=== PATIENT | male | born 1930 | race Caucasian/White ===

== ENCOUNTER 2018-01-17 17:10 | Emergency (ER) | payer MEDICARE ==
[~2018-01-17] VITALS: Ht 165.1 cm; Wt 78.0 kg
[~2018-01-17 17:10] MED LIST: ALBU90OI; ALBU90OI INH; ALBU90OI6 INH; AMLO10 PO; ASPI81CH; AZIT250 PO; Amlodipine-Ben1 EACH PO; BENAML20/5; BUDE6HFA INH; CEFP200 PO; CHLO25B; DOXA4; FLUSAL1005; FLUVIRIN IM; INDERAL XL80 MG PO; INNOPRAN; LEVFLO500 PO; META800; Omeprazole20 M1 PO; PRED10 PO; PRED5; PROC5 PO; PROPRANOLOL 80 MG; Propranolol HCl80 MG PO; Simvastatin10 MG PO; TAMS.4ER PO; THEO300ERB; TRAM50
== END 2018-01-17 19:15 | disposition home or self-care (01) ==
LOC: ER 17:10
DX: S80.11XA Contusion of right lower leg, initial encounter (principal); J44.9 Chronic obstructive pulmonary disease, unspecified; I10 Essential (primary) hypertension; E78.5 Hyperlipidemia, unspecified; Z86.73 Personal history of transient ischemic attack (TIA), and cerebral infarction without residual deficits; W18.30XA Fall on same level, unspecified, initial encounter
CPT/HCPCS: 73552; 99283

== ENCOUNTER 2018-09-03 19:27 | Inpatient (IN) | payer MEDICARE ==
[~2018-09-03] VITALS: Ht 167.6 cm; Wt 66.5 kg
[2018-09-03] MEDS ORDERED: Omeprazole20 M1 (19:59)
[2018-09-03 21:57] LABS: BASOPHILS ABSOLUTE AUTO 0.03 K/mm3 (0.00-0.23); BASOPHILS PERCENT AUTO 0 % (0-2); EOSINOPHILS ABSOLUTE AUTO 0.06 K/mm3 (0.00-0.68); EOSINOPHILS PERCENT AUTO 1 % (0-6); Hematocrit 35.1 % (37.0-53.0); Hemoglobin 10.5 g/dL (13.5-17.5); IMMATURE GRAN ABSOLUTE AUTO 0.04 K/mm3 (0.00-0.10); IMMATURE GRAN PERCENT AUTO 0 % (0-1); LYMPHOCYTES ABSOLUTE AUTO 1.41 K/mm3 (0.84-5.20); LYMPHOCYTES PERCENT AUTO 12 % (21-46); MONOCYTES ABSOLUTE AUTO 0.57 K/mm3 (0.16-1.47); MONOCYTES PERCENT AUTO 5 % (4-13); Mean Corpuscular HGB 26.9 pg (26.0-34.0); Mean Corpuscular HGB Conc 29.9 g/dL (31.5-36.5); Mean Corpuscular Volume 90 fL (80-100); Mean Platelet Volume 9.2 fL (9.1-12.4); NEUTROPHILS ABSOLUTE AUTO 9.52 K/mm3 (1.96-9.15); NEUTROPHILS PERCENT AUTO 82 % (41-73); Platelet Count 249 K/mm3 (150-400); RDW Standard Deviation 49.8 fL (35.1-46.3); White Blood Cell Count 11.63 K/mm3 (4.00-11.30)
[2018-09-03 22:12] LABS: Anion Gap 5 mmol/L (6-16); Blood Urea Nitrogen 23 mg/dL (8-24); Bun/Creatinine Ratio 21.3 (12.0-20.0); CO2, Blood 30 mmol/L (21-32); Calcium, Blood 8.4 mg/dL (8.5-10.1); Chloride, Blood 107 mmol/L (98-108); Creatinine, Blood 1.08 mg/dL (0.60-1.20); Glomerular Filtration Rate >60 (60-); Glucose, Blood 163 mg/dL (70-99); Potassium, Blood 4.6 mmol/L (3.5-5.5); Sodium, Blood 142 mmol/L (136-145)
--- NOTE | 2018-09-04 06:47 | NUR ---
SHIFT SUMMARY PT ADMITTED LAST NIGHT AFTER GLF. DR. LAFLEUR SAW HIM THIS MORNING AND DOC HAS NO CONCERNS ABOUT THE PT GOING TO SURGERY TODAY. ORTHO TO SEE HIM THIS MORNING. 2L VIA NC AT HS, PT DENIES SOB. RIGHT LEG IS EXTERNALLY ROTATED. PT USES A FWW AT BASELINE. HE IS A&O. PT'S DAUGHTER STAYED THE NIGHT WITH HIM. PT IS INCONTINENT OF B&B THOUGH WILL CALL FOR THE URINAL. HE HAS URGENCY AND FREQUENCY AT BASELINE. EKG DONE THIS MORNING. WILL CTM UNTIL PASS TO NEXT SHIFT.
--- NOTE | 2018-09-04 08:00 | NUR ---
THIS RN GAVE REPORT TO OTHER RN ASSUMING CARE AT THIS TIME.
--- NOTE | 2018-09-04 08:20 | NUR ---
ANGEL MORRIS TO ROOM DISCUSSING OR PLAN. AWAITING MEDS FROM PHARMACY.
--- NOTE | 2018-09-04 08:44 | NUR ---
pt medicated with amlodopine and propanlol per orders. other meds held.
--- NOTE | 2018-09-04 09:50 | NUR ---
THIS RN RECIEVED UPDATE ON PT AND IS ASSUMING CARE AT THIS TIME.
--- NOTE | 2018-09-04 12:46 | NUR ---
PT TO HAVE PROCEDURE WITH DAYSURGERY STAFF IN OWN BED. FAMILY PRESENT. INFORMED DAYSHIFT OF STARTING IV, THEY REPORT WILL START BACK IN DAYSURGERY. PT ATTENDS CHANGED HE MISSED URINAL. FAMILY PRESENT.
--- NOTE | 2018-09-04 14:42 | NUR ---
OTHER MAHENDRA Schmid GIVEN REPORT AND IS ASSUMING CARE OF PT AT THIS TIME.
--- NOTE | 2018-09-04 16:49 | NUR ---
Provided supportive visit to Mr. Martinez. He was welcoming of companionship and encouragement. Family is very supportive. No needs presented. I will remain available.
[2018-09-05 05:44] LABS: BASOPHILS ABSOLUTE AUTO 0.02 K/mm3 (0.00-0.23); BASOPHILS PERCENT AUTO 0 % (0-2); EOSINOPHILS ABSOLUTE AUTO 0.02 K/mm3 (0.00-0.68); EOSINOPHILS PERCENT AUTO 0 % (0-6); Hematocrit 27.3 % (37.0-53.0); Hemoglobin 8.2 g/dL (13.5-17.5); IMMATURE GRAN ABSOLUTE AUTO 0.06 K/mm3 (0.00-0.10); IMMATURE GRAN PERCENT AUTO 1 % (0-1); LYMPHOCYTES ABSOLUTE AUTO 1.14 K/mm3 (0.84-5.20); LYMPHOCYTES PERCENT AUTO 10 % (21-46); MONOCYTES ABSOLUTE AUTO 0.88 K/mm3 (0.16-1.47); MONOCYTES PERCENT AUTO 8 % (4-13); Mean Corpuscular HGB 26.5 pg (26.0-34.0); Mean Corpuscular Volume 88 fL (80-100); Mean Platelet Volume 9.5 fL (9.1-12.4); NEUTROPHILS ABSOLUTE AUTO 9.17 K/mm3 (1.96-9.15); NEUTROPHILS PERCENT AUTO 81 % (41-73); Platelet Count 199 K/mm3 (150-400); RDW Coefficient Variation 15.1 % (11.7-14.2); RDW Standard Deviation 48.8 fL (35.1-46.3); Red Blood Cell Count 3.09 M/mm3 (4.30-5.90); White Blood Cell Count 11.29 K/mm3 (4.00-11.30)
[2018-09-05 06:07] LABS: Anion Gap 6 mmol/L (6-16); Blood Urea Nitrogen 29 mg/dL (8-24); Bun/Creatinine Ratio 26.9 (12.0-20.0); CO2, Blood 29 mmol/L (21-32); Chloride, Blood 104 mmol/L (98-108); Creatinine, Blood 1.08 mg/dL (0.60-1.20); Glomerular Filtration Rate >60 (60-); Glucose, Blood 162 mg/dL (70-99); Potassium, Blood 4.4 mmol/L (3.5-5.5); Sodium, Blood 139 mmol/L (136-145)
--- NOTE | 2018-09-05 06:25 | NUR ---
O2 SATS RANGING FROM 83-87 ON 3.5 L NC. RT NOTIFIED FOR NEW ORDER OF ALBUTEROL TX. PT'S O2 RATE INCREASED TO 5 L PER NC. PT DENIES CHEST PAIN AND SOB.
--- NOTE | 2018-09-05 06:45 | NUR ---
HR DROPPING TO 50'S AND RISING BACK UP TO 90'S QUICKLY. 02 AT 83% ON [address] LAFLEUR NOTIFIED OF RECENT CHANGES. EKG AND CHEST XRAY ORDERED. WILL FAX EKG RESULTS TO DR LAFLEUR.
--- NOTE | 2018-09-05 06:45 | NUR ---
RT AT BEDSIDE. PT PUT ON NON-REBREATHER MASK.
--- NOTE | 2018-09-05 07:21 | NUR ---
09/05/18 0721 Barbara De Leon VERIFICATIONS: EDIT CHART.
--- NOTE | 2018-09-05 07:40 | NUR ---
BREATHING AND O2 SATS IMPROVED AFTER RESPIRATORY THERAPY. 02 SATS STABLE ABOVE 90. PT'S HOB IS ELEVATED. DENIES SOB AND CHEST PAIN. DENIES N/V AFTER RECENT DOSE OF ZOFRAN GIVEN. RATING PAIN 3/10 ON PAIN SCALE. BLOOD PRESSURE WNL.
--- NOTE | 2018-09-05 08:04 | NUR ---
SHIFT SUMMARY: PT C/O NAUSEA AROUND 2230 LAST NIGHT. GIVEN ZOFRAN PRN PER EMAR. MILD IMPROVEMENT. C/O SOME PAIN IN RIGHT HIP. RATING 3/10. GIVEN IV PAIN MEDS INSTEAD OF ORAL MEDS DUE TO N/V. PT THEN COMPLAINS OF MORE N/V. ZOFRAN GIVEN A TOTAL OF 3 TIMES. TOTAL EMESIS OUTPUT OF 900 ML. IV FLUIDS INFUSING AT 80/HR. PT HAVING DIFFICULT TIME VOIDING. BLADDER SCANNED AT APPROX 2250 WITH A URINE AMT OF 297. STRAIGHT CATHED AT APPROX 2315 WITH 300 ML OUTPUT. BLADDER SCAN THIS MORNING AT APPROX 0715 SHOWED 104 ML IN BLADDER. WILL CON TO MONITOR. PT'S O2 BEGINNING TO DROP INTO 80'S AROUND 0530 THIS AM. NEW FINGER PROBE ATTATCHED, NEW NC TUBING PLACED. PULSE OX FROM MONITOR PLACED ON OPPOSITE FINGER. NO CHANGE OR IMPROVEMENT. RESPIRATORY THERAPY NOTIFIED. HR RANGING FROM 50'S-90'S. DR LAFLEUR NOTIFIED. CHEST XRAY AND EKG ORDERED.
--- NOTE | 2018-09-05 08:26 | NUR ---
RT HERE, REPORTS 02 DOWN TO 3L02NC @94%. PT HAVING NAUSEA OFF AND ON.
--- NOTE | 2018-09-05 09:01 | NUR ---
PT HAVING NAUSEA THAT COMES AND GOES. PT 02 LEVEL REQUIRING 5L02NC IT WAS EARLIER THIS AM. DISCUSSED WITH CLINICAL COORDINATOR.
--- NOTE | 2018-09-05 09:25 | NUR ---
PT RESTING QUIETLY AT THIS TIME. PT ON 5LO2NC @97%. O2 TURNED DOWN TO 4L02NC @95% FAMILY PRESENT.
--- NOTE | 2018-09-05 10:13 | NUR ---
PT MED FOR NAUSEA. APPEARS WHEN PT HAVING NAUSEA THAT HE REQUIRES TO HAVE INCREASED O2. PT SPITTING UP DARK BROWN LIQUID.
--- NOTE | 2018-09-05 11:04 | NUR ---
DR LAFLEUR CALLED FOR UPDATE. GIVEN. FAMILY IN ROOM. BLADDER SCAN COMPLETED. DR AWARE OF BLADDER SCAN. DR REPORTS TO GIVE IV PROTONIX NOW. PT WAS REPORTING HEARTBURN EARLIER THAT WENT AWAY.
[2018-09-05 15:07] LABS: PCO2 Arterial 45.8 mmHg (35-45); PO2 Arterial 52.7 mmHg (80-100); pH Blood Arterial 7.41 (7.35-7.45)
--- NOTE | 2018-09-05 17:53 | NUR ---
DR LAFLEUR HERE RECENTLY. DISCUSSED PT'S STATUS. PT HAVING SMALL AMTS OF SIPS WITH HOB ELEVATED WITH NO NAUSEA SO FAR.
--- NOTE | 2018-09-05 18:18 | NUR ---
SHIFT SUMMARY PT NOW TOLERATING SMALL AMT'S OF SIPS OF C.L. WITH NO NAUSEA. PT REPORTS PASSING SMALL AMTS OF GAS. PT VOIDING BETTER THIS AFTERNOON. PT OXYGEN DOWN TO 3.5LNC AND DOES NOT APPEAR SOB. PT WORKED WITH THERAPY EARLIER TODAY. PT WAS DISORIENTED EARLIER BUT HAS CLEARED UP SINCE THEN, ABG WAS COMPLETED BY RT. PT BEEN CLEANED UP AND HAS ATTENDS IN PLACE. PT ENC TO USE I/S. FAMILY IN ROOM T/O DAY. DR LAFLEUR CALLED FOR MULT UPDATES AND CAME IN TO SEE PT THIS EVENING. ALARM IN PLACE. HOB ELEVATED WHEN PT TAKING DRINKS OR HAVING ICE CHIPS. CONT BIOX IN ROOM.
--- NOTE | 2018-09-06 04:17 | NUR ---
SUMMARY: PT IS POD2 R FEMUR REPAIR. NO PIANO MAKER NIGHT. VSS, PT DID HAVE HARD TIME SLEEPING, ABLE TO SLEEP AROUND 0300. SURGICAL SITE WNL. PT VOIDING SMALL AMOUNTS IN URINAL. GIVEN TYLENOL X1. ABLE TO TOLERATE SIPS OF WATER. A/O, VSS. PT DAUGHTER AT BEDSIDE. WILL CTM AND REPORT TO DAY RN
[2018-09-06 04:56] LABS: BASOPHILS ABSOLUTE AUTO 0.03 K/mm3 (0.00-0.23); BASOPHILS PERCENT AUTO 0 % (0-2); EOSINOPHILS ABSOLUTE AUTO 0.06 K/mm3 (0.00-0.68); EOSINOPHILS PERCENT AUTO 1 % (0-6); Hemoglobin 7.3 g/dL (13.5-17.5); IMMATURE GRAN ABSOLUTE AUTO 0.06 K/mm3 (0.00-0.10); IMMATURE GRAN PERCENT AUTO 1 % (0-1); LYMPHOCYTES ABSOLUTE AUTO 1.37 K/mm3 (0.84-5.20); LYMPHOCYTES PERCENT AUTO 12 % (21-46); MONOCYTES ABSOLUTE AUTO 0.86 K/mm3 (0.16-1.47); MONOCYTES PERCENT AUTO 8 % (4-13); Mean Corpuscular HGB 26.8 pg (26.0-34.0); Mean Corpuscular HGB Conc 30.4 g/dL (31.5-36.5); Mean Corpuscular Volume 88 fL (80-100); Mean Platelet Volume 9.9 fL (9.1-12.4); NEUTROPHILS PERCENT AUTO 79 % (41-73); Platelet Count 172 K/mm3 (150-400); RDW Coefficient Variation 15.3 % (11.7-14.2); RDW Standard Deviation 49.1 fL (35.1-46.3); Red Blood Cell Count 2.72 M/mm3 (4.30-5.90); White Blood Cell Count 11.18 K/mm3 (4.00-11.30)
[2018-09-06 05:21] LABS: Alanine Aminotransfer (ALT/SGP 17 U/L (12-78); Albumin, Blood 2.3 g/dL (3.4-5.0); Albumin/Globulin Ratio 0.6 (0.8-1.8); Alk Phos 94 U/L (50-136); Anion Gap 6 mmol/L (6-16); Aspartate Aminotrans (AST/SGOT 16 U/L (12-37); Bilirubin, Total 0.4 mg/dL (0.1-1.0); Blood Urea Nitrogen 29 mg/dL (8-24); Bun/Creatinine Ratio 26.6 (12.0-20.0); CO2, Blood 29 mmol/L (21-32); Chloride, Blood 104 mmol/L (98-108); Creatinine, Blood 1.09 mg/dL (0.60-1.20); Globulin, Blood 3.9 g/dL (2.2-4.0); Glomerular Filtration Rate >60 (60-); Glucose, Blood 129 mg/dL (70-99); Sodium, Blood 139 mmol/L (136-145); Total Protein, Blood 6.2 g/dL (6.4-8.2)
--- NOTE | 2018-09-06 05:32 | NUR ---
PT HGB 7.[address] VOGEL NOTIFIED. SEE NEW ORDERS.
[2018-09-06 17:37] LABS: Hematocrit 29.2 % (37.0-53.0); Hemoglobin 9.3 g/dL (13.5-17.5)
--- NOTE | 2018-09-06 18:04 | NUR ---
SUMMARY PATIENT RECEIVED 2 UNITS OF PRBC'S. FAMILY ATTENTIVE AT BEDSIDE THROUGHOUT SHIFT. PATIENTS RIGHT HIP DRESSING DRY AND INTACT. PAIN CONTROLLED WITH TYLENOL
--- NOTE | 2018-09-07 18:14 | NUR ---
SUMMARY PATIENT DENIES NAUSEA THROUGHOUT SHIFT, LIQUID BROWN BM'S WITH SOME FORMED STOOL MIXED IN LIQUID. PATIENT WITH VERY POOR PO INTAKE. FAMILY AND NURSING STAFF ENCOURAGING INCREASED INTAKE. PATIENTS PAIN WELL CONTROLLED WITH TYLENOL. PATIENT WITH NO REDNESS OR SKIN IRRITATION NOTED. RIGHT HIP DRESSING INTACT X2,FAMILY PRESENT AT BEDSIDE THROUGHOUT SHIFT TABATHA BEAL RN
--- NOTE | 2018-09-08 18:20 | NUR ---
SUMMARY NO ACUTE CHANGES NOTED THROUGH THE DAY. PT WORKED WITH THERAPY X1, SAT IN THE CHAIR FOR A FEW HRS, TOLERATED IT WELL. PAIN MANAGED WITH TYLENOL. THROAT LOZENGES GIVEN FOR SORE THROAT. PT C/O OF PROBLEMS SWALLOWING. IS AWARE. SWALLOW STUDY ORDERED IN THE AM. PO FLUIDS ENCOURAGED, PT IS NOT VERY RECEPTIVE, FREQUENT EDUCATION PROVIDED. PT IS A 2 PERSON LIFT TRANSFER BACK TO BED. CALL LIGHT IN REACH, FAMILY AT THE BEDSIDE ASSISTING WITH CARE. [place]
--- NOTE | 2018-09-09 04:34 | NUR ---
SHIFT SUMMARY: POD #5 FOR R HIP HIP REPAIR. PAIN MANAGED WITH TYLENOL PER EMAR. ATTEMPTED TO DECREASE O2 FROM 3L TO 2.5L, PT SITTING AT 90-92%. PT INCREASED BACK UP TO 3 L PER NC. USING URINAL WITH ATTENDS IN PLACE FOR COMFORT. POOR PO INTAKE. ENCOURAGED TO INCREASE WATER INTAKE. DENIES N/V. FLUIDS INFUSING PER EMAR. VOIDING DARK YELLOW URINE. PT RESTING MOST OF SHIFT. FAMILY AT BEDSIDE.
[2018-09-09 05:23] LABS: BASOPHILS ABSOLUTE AUTO 0.03 K/mm3 (0.00-0.23); BASOPHILS PERCENT AUTO 0 % (0-2); EOSINOPHILS ABSOLUTE AUTO 0.15 K/mm3 (0.00-0.68); EOSINOPHILS PERCENT AUTO 2 % (0-6); Hematocrit 28.8 % (37.0-53.0); Hemoglobin 8.9 g/dL (13.5-17.5); IMMATURE GRAN ABSOLUTE AUTO 0.08 K/mm3 (0.00-0.10); IMMATURE GRAN PERCENT AUTO 1 % (0-1); LYMPHOCYTES ABSOLUTE AUTO 1.07 K/mm3 (0.84-5.20); LYMPHOCYTES PERCENT AUTO 16 % (21-46); MONOCYTES ABSOLUTE AUTO 0.78 K/mm3 (0.16-1.47); MONOCYTES PERCENT AUTO 12 % (4-13); Mean Corpuscular HGB Conc 30.9 g/dL (31.5-36.5); Mean Corpuscular Volume 87 fL (80-100); NEUTROPHILS ABSOLUTE AUTO 4.62 K/mm3 (1.96-9.15); NEUTROPHILS PERCENT AUTO 69 % (41-73); NRBC ABSOLUTE 0.03 K/mm3 (0.00-0.02); NRBC Auto 0.4 /100 WBC (0.0-0.2); Platelet Count 187 K/mm3 (150-400); RDW Coefficient Variation 15.9 % (11.7-14.2); RDW Standard Deviation 50.6 fL (35.1-46.3); White Blood Cell Count 6.73 K/mm3 (4.00-11.30)
[2018-09-09 05:56] LABS: Anion Gap 6 mmol/L (6-16); Blood Urea Nitrogen 15 mg/dL (8-24); Bun/Creatinine Ratio 16.9 (12.0-20.0); CO2, Blood 30 mmol/L (21-32); Calcium, Blood 8.1 mg/dL (8.5-10.1); Chloride, Blood 103 mmol/L (98-108); Creatinine, Blood 0.89 mg/dL (0.60-1.20); Glomerular Filtration Rate >60 (60-); Glucose, Blood 127 mg/dL (70-99); Potassium, Blood 3.5 mmol/L (3.5-5.5); Sodium, Blood 139 mmol/L (136-145)
--- NOTE | 2018-09-09 09:06 | NUR ---
EARLIER TODAY DISCUSSED WITH IMAGING STUDY THIS AM WHO REPORTED UNABLE TO COMPLETE D/T SPEECH BEING UNAVAIL, DR NOTIFIED WHO REPORTED TO COMPLETE TODAY WITHOUT SPEECH. IMAGING NOTIFIED WHO REPORTED THAT THEY WILL NOT BE ABLE TO COMPLETE WITHOUT SPEECH AND THAT THEY WOULD NOTIFY DR LAFLEUR TO INFORM HIM OF THIS.
--- NOTE | 2018-09-09 16:36 | NUR ---
SHIFT SUMMARY PT WAS NPO THIS AM UNTIL STUDY WAS CANCELLED. PT BEEN EATING AND DRINKING WITH ASP PRECAUTIONS IN PLACE. PT FAMILY IN ROOM T/O DAY. PT WORKED WITH THERAPY. PT BEEN VOIDING SMALL AMT'S. PT HAS ATTENDS IN PLACE. STUDY WAS CANCELLED EARLIER SPEECH THERAPY WAS NOT AVAIL FOR STUDY, DR WAS NOTIFIED BY IMAGING. PT HAS TEDS IN PLACE. PT REPORTS BREATHING BETTER TODAY. FAMILY REPORTS PT APPEARS BETTER TODAY.
--- NOTE | 2018-09-09 16:56 | NUR ---
REPORT GIVEN TO OTHER RN Tuyet WHO IS TAKING OVER CARE AT THIS TIME.
--- NOTE | 2018-09-09 22:45 | NUR ---
PT REPORTS FEELING CHEST TIGHTNESS. ALSO STATES FEELING SOME BURNING. VITAL SIGNS TAKEN. BP 142/78, HR AT 106, O2 AT 94, TEMP AT 99.4 AND RESPIRATIONS AT 32. SOME WHEEZING NOTED UPON AUSCULATION. RESPIRATORY NOTIFED FOR PRN BREATHING TX. WILL CON TO MONITOR PT.
--- NOTE | 2018-09-09 23:40 | NUR ---
RT AT BEDSIDE GIVING BREATHING TX
--- NOTE | 2018-09-09 23:50 | NUR ---
UNABLE TO FLUSH IV.
--- NOTE | 2018-09-10 01:00 | NUR ---
PT GIVEN MILK AND ROOTBEER FOR SUSPECTED HEARTBURN AT APPROX 2350. PT NOW REPORTING THAT HEARTBURN HAS NOW RESOLVED. DENIES CHEST TIGHTNESS, PAIN AND BURNING. PT RESTING IN BED. FAMILY AT BEDSIDE.
--- NOTE | 2018-09-10 01:54 | NUR ---
REPORT RECIEVED FROM DOMINIK MCCRAY, ASSUMED PT CARE AT THIS TIME
--- NOTE | 2018-09-10 02:15 | NUR ---
REPORT GIVEN TO MAHENDRA LANIER WHO WILL BE RESUMING CARE.
--- NOTE | 2018-09-10 07:28 | NUR ---
SUMMARY: NO ACUTE CHANGE SINCE ASSUMED CARE. PT BLADDER SCANED AT 0200 AND AGAIN AT 0530, SEE CHARTING. PT COMPLAINING OF BURNING WITH URINATION AT ABOUT 0450, PT ONLY ABLE TO VOID VERY SMALL AMOUNTS. 500 ML OF URINE DRAINED WITH STRAIGHT CATH AT ABOUT 0630. PT DID HAVE A BM THIS AM. VSS, NO SAFETY CONCERNS THIS AM. WILL REPORT TO DAY RN.
--- NOTE | 2018-09-10 16:00 | NUR ---
RECENTLY DISCUSSED PT'S STATUS WITH DR LAFLEUR. SEE ORDERS. DR LAFLEUR STATED THAT THE HOSPITALIST IS TO COVER PT. DISCUSSED WITH NURSING AS400 ADMINISTRATOR. HOSPITALIST NOTIFIED.
--- NOTE | 2018-09-10 17:58 | NUR ---
DR MEJIA HERE TO SEE PT.
--- NOTE | 2018-09-10 19:23 | NUR ---
DR MEJIA CALLED RECENTLY WITH ORDERS FOR PT. SEE ORDERS.
--- NOTE | 2018-09-10 19:34 | NUR ---
SHIFT SUMMARY PT BEEN EATING SMALL AMT'S. PT BEEN ASSISTED WITH ADL'S PRN. PT BEEN SEEN BY HOSPITALIST THIS EVENING WITH FAMILY PRESENT, DISCUSSING PT'S STATUS. SEE ORDERS. HS RN UPDATED ON ORDERS. PT BEEN REPOSITIONED MULT TIMES TODAY. PT SAT ON SIDE OF BED TODAY, DID NOT WISH TO GET TO CHAIR. PT HAD SMALL BM TODAY.
--- NOTE | 2018-09-11 04:31 | NUR ---
SHIFT SUMMARY: PT HAS DONE WELL THIS SHIFT. CAMARGO INSERTED AT APPROX 0000 WITH A TOTAL OUTPUT OF 325. STILL ON 3L O2 WITH STABLE SATS. GIVEN TYLENOL Q4 FOR PAIN PER EMAR. SMALL AMT OF DRG ON AQUACEL DRESSINGS. DENIES HEARTBURN AND CHEST PAIN OVERNIGHT. RUSSELL DIET. DENIES N/V. POOR PO INTAKE. WILL CONTINUE TO ENCOURAGE LIQUIDS.
--- NOTE | 2018-09-11 11:44 | NUR ---
PT SITTING UP IN CHAIR. FAMILY AT BEDSIDE.
--- NOTE | 2018-09-11 16:12 | NUR ---
UPDATE CALL TO DR. CIARRA LAFLEUR NOTIFIED THAT PT HAS BEEN UNABLE TO VOID SINCE CAMARGO CATHETER WAS REMOVED. BLADDER SCAN SHOWED 332ML IN THE BADDER. DR. LAFLEUR ALSO NOTIFIED THAT PT'S RR WAS ELEVATED AND HE IS REQUIRING 3L O2 VIA NC WHICH IS AN INCREASE FROM WHAT HE USES AT HOME. WILL MONITOR UNTIL REPORT TO ONCOMING RN.
--- NOTE | 2018-09-11 18:54 | NUR ---
SHIFT SUMMARY PAIN HAS BEEN MANAGED WITH TYLENOL THIS SHIFT. PT WAS A 2 MAX ASSIST TO THE CHAIR, USING SLIDE BOARD WITH THERAPY. PT REMAINS A LIFT ASSIST FOR NURSING STAFF. CAMARGO CATHETER WAS REMOVED THIS AM; NO VOID AT THIS TIME, DR. LAFLEUR IS AWARE. PLAN FOR POSSIBLE DISCHARGE TO SNF TOMORROW. VSS. WILL MONITOR UNTIL REPORT TO ONCOMING RN.
--- NOTE | 2018-09-12 05:40 | NUR ---
0540: DR. LAFLEUR MAKES MORNING ROUNDS ON PT AND IS UPDATED ON PROGRESS THROUGHOUT SHIFT. MINIMAL VOID, CONTINUE TO ENCOURAGE PO INTAKE. VSS, AFEBRILE AND PAIN WELL CONTROLLED WITH PO TYLENOL.
[2018-09-12] MEDS ORDERED: CEPACOL SORE T1 EACH MM (11:27)
[2018-09-12] MEDS ORDERED: ACET325 PO (11:27)
[2018-09-12] MEDS ORDERED: CLOT10 PO (11:28)
[2018-09-12] MEDS ORDERED: ENOX40I SC (11:29)
[2018-09-12] MEDS ORDERED: DOCU100 PO (11:30)
[2018-09-12] MEDS ORDERED: FINA5 PO (11:30)
[2018-09-12] MEDS ORDERED: ALBU3IS INH (11:31)
[2018-09-12] MEDS ORDERED: DULERA 200 MCG/13 GM INH (11:32)
[2018-09-12] MEDS ORDERED: Flonase 0.05% N16 GM INH (11:32)
[2018-09-12] MEDS ORDERED: NYSTRITC TOP (11:33)
--- NOTE | 2018-09-12 11:41 | NUR ---
ATTEMPT MADE TO CONTACT RN AT [facility] FOR REPORT. MESSAGE LEFT LAUREN.
--- NOTE | 2018-09-12 12:17 | NUR ---
REPORT CALLED TO [facility]. AWAITING TRANSPORT.
--- NOTE | 2018-09-12 12:34 | NUR ---
PT LEFT WITH TRANSPORT TO [facility] AT THIS TIME.
== END 2018-09-12 12:34 | DRG 480 ==
LOC: ER 19:27 → SURS 21:55
PROVIDERS: Emergency Medicine; Internal Medicine; Orthopaedic Surgery; ADMIT Hospitalist
PROC: 0QS634Z Reposition Right Upper Femur with Internal Fixation Device, Percutaneous Approach (ICD-10-PCS; principal; 2018-09-04 13:30)
DX: S72.141A Displaced intertrochanteric fracture of right femur, initial encounter for closed fracture (principal); K22.6 Gastro-esophageal laceration-hemorrhage syndrome; K29.71 Gastritis, unspecified, with bleeding; N13.8 Other obstructive and reflux uropathy; B37.89 Other sites of candidiasis; D62 Acute posthemorrhagic anemia; Z99.81 Dependence on supplemental oxygen; J44.9 Chronic obstructive pulmonary disease, unspecified; D63.8 Anemia in other chronic diseases classified elsewhere; G20 Parkinson's disease; M85.88 Other specified disorders of bone density and structure, other site; I10 Essential (primary) hypertension; E78.5 Hyperlipidemia, unspecified; K58.9 Irritable bowel syndrome, unspecified; R25.1 Tremor, unspecified; I71.4 Abdominal aortic aneurysm, without rupture; N13.9 Obstructive and reflux uropathy, unspecified; R09.02 Hypoxemia; N40.1 Benign prostatic hyperplasia with lower urinary tract symptoms; R35.0 Frequency of micturition; K21.9 Gastro-esophageal reflux disease without esophagitis; M17.0 Bilateral primary osteoarthritis of knee; R11.2 Nausea with vomiting, unspecified; J98.01 Acute bronchospasm; R53.1 Weakness; R33.8 Other retention of urine; T40.605A Adverse effect of unspecified narcotics, initial encounter; Y92.230 Patient room in hospital as the place of occurrence of the external cause; R06.82 Tachypnea, not elsewhere classified; W01.0XXA Fall on same level from slipping, tripping and stumbling without subsequent striking against object, initial encounter; Y93.89 Activity, other specified; Y92.008 Other place in unspecified non-institutional (private) residence as the place of occurrence of the external cause; Z79.899 Other long term (current) drug therapy; Z87.891 Personal history of nicotine dependence; Z87.01 Personal history of pneumonia (recurrent); Z86.73 Personal history of transient ischemic attack (TIA), and cerebral infarction without residual deficits; Z90.79 Acquired absence of other genital organ(s); Z95.828 Presence of other vascular implants and grafts; Z90.49 Acquired absence of other specified parts of digestive tract; Z79.82 Long term (current) use of aspirin; Z98.41 Cataract extraction status, right eye; Z98.42 Cataract extraction status, left eye; T36.95XA Adverse effect of unspecified systemic antibiotic, initial encounter; Y92.239 Unspecified place in hospital as the place of occurrence of the external cause
CPT/HCPCS: 36415; 36430; 36600; 51701; 51702; 71045; 73502; 74022; 80048; 80053; 82803; 85014; 85018; 85025; 86850; 86900; 86901; 86923; 93005; 93010; 94640; 94667; 94668; 94760; 94762; 96374; 96375; 97110; 97163; 97166; 97530; 99284-25; C1713; C1769; C9113; G0103; J0690; J0696; J1650; J2270; J2370; J2405; J2765; J3010; J7120; P9016

== ENCOUNTER 2018-09-24 03:35 | Inpatient (IN) | payer MEDICARE ==
[~2018-09-24] VITALS: Ht 175.3 cm; Wt 82.0 kg
[~2018-09-24 03:35] MED LIST changes: +ACET325 PO; +ALBU3IS INH; +CEPACOL SORE T1 EACH MM; +CLOT10 PO; +DOCU100 PO; +DULERA 200 MCG/13 GM INH; +ENOX40I SC; +FINA5 PO; +Flonase 0.05% N16 GM INH; +NYSTRITC TOP; +Omeprazole20 M1
[2018-09-24] MEDS ORDERED: Azor 5-20 MG T1 EACH PO (03:40)
[2018-09-24] MEDS ORDERED: ASPI81CH PO (03:40)
[2018-09-24] MEDS ORDERED: FINA5 PO (03:40)
[2018-09-24] MEDS ORDERED: ASPI325 PO (03:40)
[2018-09-24] MEDS ORDERED: Omeprazole20 M1 PO (03:41)
[2018-09-24] MEDS ORDERED: DOCU100 PO (03:41)
[2018-09-24] MEDS ORDERED: DULERA 200 MCG/13 GM INH (03:41)
[2018-09-24] MEDS ORDERED: TAMS.4ER PO (03:41)
[2018-09-24] MEDS ORDERED: ALLERGY RELIE15.8 ML (03:42)
[2018-09-24] MEDS ORDERED: Ipratropium Bro15 ML (03:43)
[2018-09-24] MEDS ORDERED: Calci-Chew500 MG PO (03:43)
[2018-09-24 04:00] LABS: Hematocrit 34.6 % (37.0-53.0); Hemoglobin 10.4 g/dL (13.5-17.5); Mean Corpuscular HGB 26.9 pg (26.0-34.0); Mean Corpuscular HGB Conc 30.1 g/dL (31.5-36.5); Mean Corpuscular Volume 89 fL (80-100); Mean Platelet Volume 9.1 fL (9.1-12.4); Platelet Count 363 K/mm3 (150-400); Red Blood Cell Count 3.87 M/mm3 (4.30-5.90); White Blood Cell Count 18.48 K/mm3 (4.00-11.30)
[2018-09-24 04:21] LABS: Alanine Aminotransfer (ALT/SGP 24 U/L (12-78); Albumin, Blood 2.6 g/dL (3.4-5.0); Albumin/Globulin Ratio 0.5 (0.8-1.8); Alk Phos 144 U/L (50-136); Anion Gap 7 mmol/L (6-16); Aspartate Aminotrans (AST/SGOT 22 U/L (12-37); Bilirubin, Total 0.6 mg/dL (0.1-1.0); Blood Urea Nitrogen 25 mg/dL (8-24); Bun/Creatinine Ratio 26.2 (12.0-20.0); CO2, Blood 28 mmol/L (21-32); Calcium, Blood 8.8 mg/dL (8.5-10.1); Chloride, Blood 101 mmol/L (98-108); Creatinine, Blood 0.95 mg/dL (0.60-1.20); Globulin, Blood 4.9 g/dL (2.2-4.0); Glomerular Filtration Rate >60 (60-); Glucose, Blood 129 mg/dL (70-99); Potassium, Blood 3.8 mmol/L (3.5-5.5); Sodium, Blood 136 mmol/L (136-145); Total Protein, Blood 7.5 g/dL (6.4-8.2); Troponin I 0.082 ng/mL (0.000-0.040)
[2018-09-24 04:35] LABS: BAND PERCENT MAN 10 % (0-8); BASOPHILS PERCENT MAN 0 % (0-2); EOSINOPHILS PERCENT MAN 0 % (0-6); LYMPHOCYTES ABSOLUTE MAN 0.73 K/mm3 (0.84-5.20); LYMPHOCYTES PERCENT MAN 4 % (21-46); MONOCYTES ABSOLUTE MAN 1.66 K/mm3 (0.16-1.47); MONOCYTES PERCENT MAN 9 % (4-13); NEUTROPHILS ABSOLUTE MAN 16.07 K/mm3 (1.96-9.15); SEG NEUTROPHILS PERCENT MAN 77 % (41-73); TOTAL CELLS COUNTED 100
[2018-09-24] MEDS ORDERED: [UNRECOGNIZED DRUG - CODE] PO (09:29)
[2018-09-24] MEDS ORDERED: ALBU3IS INH (09:58)
[2018-09-24] MEDS ORDERED: Acephen650 MG PR (09:59)
[2018-09-24] MEDS ORDERED: ACET325 PO (10:00)
[2018-09-24] MEDS ORDERED: BISA10S PR (10:01)
[2018-09-24] MEDS ORDERED: CEPACOL SORE T1 EACH MM (10:03)
[2018-09-24] MEDS ORDERED: CVS DISPOSABLE399 ML PR (10:04)
[2018-09-24] MEDS ORDERED: Milk Of Ma400 MG/5 M PO (10:05)
--- NOTE | 2018-09-24 19:10 | NUR ---
PATIENT A/OX4, TURNNG Q2 HOURS. NS@ 75ML/HR INFUSING. TAKES PILLS WHOLE WITH WATER. TOLERATING MECHANICAL SOFT DIET. STRAIGHT CATHED X1 THIS SHIFT WITH 950ML RETURN. PATIENT WAS DIFFICULT TO CATH DUE TO ENLARGED PROSTATE. 14F COUDE CATH USED. SKIN INTACT. INCISIONS FROM RECENT HIP SURGERY WNL AND OPEN TO AIR. FALL PRECAUTIONS IN PLACE PER UNIT PROTOCOL. PT/OT/ST EVALS ORDERED. TYLENOL GIVEN X1 THIS SHIFT FOR R LEG AND CHEST PAIN. 4LO2 TO MAINTAIN SATS, LUNGS COARSE/DIM. COUGHING UP LARGE AMOUNT OF THICK BROWN SPUTUM, SAMPLE SENT TO LAB. FAMILY SUPPORTIVE AND AT BEDSIDE FOR MOST OF THE DAY.
--- NOTE | 2018-09-25 01:15 | NUR ---
LOW BP DR. LAFLEUR CALLED AND NOTIFIED OF PT HYPOTENSION. 36. PT ASYMPTOMATIC. AMLODIPINE DC'D. NS INCREASED FROM 75ML TO 125 ML/HR. 200 CC BOLUS ALSO ORDERED. WILL MONITOR.
--- NOTE | 2018-09-25 03:11 | NUR ---
BLOOD PRESSURE HAS INCREASED SINCE BOLUS. PT RESTING, ASYMPTOMATIC. WILL LUIS.
--- NOTE | 2018-09-25 04:23 | NUR ---
SHIFT SUMMARY PT HAS HAD SOME HYPOTENSION THIS SHIFT. HE HAS REMAINED ASYMPTOMATIC. DR. LAFLEUR CALLED AND NOTIFED OF LOW BP AND ORDERS WERE PLACED. PT BP HAS RESPONDED TO BOLUS. HE HAS RESTED OFF AND ON T/O THE NIGHT. A/OX4, ANSWERS QUESTIONS APPROPRIATELY. BLADDER SCAN AT 0000 SHOWED ONLY 340 MLS IN HIS BLADDER. PT HAS NOT VOIDED YET THIS SHIFT. PT TO BE RESCANNED AT 0600. PER DR. LAFLEUR'S ORDERS. PT HAS INTERMITTENT RIGHT RIB PAIN AND RIGHT HIP PAIN. TYLENOL PROVIDES RELIEF. REPOSITIONED PRN FOR COMFORT. NEW IV ESTABLISHED TO RIGHT WRIST. PRIOR IV FIELD START TO THE LEFT AC INFILTRATED. INFILTRATION MILD. IVF INFUSING AT 125 ML/HR. DAUGHTER IS AT BEDSIDE T/O THE NIGHT AND IS ATTENTIVE TO PT NEEDS. OVERALL RESTFUL NIGHT FOR PT. WILL CONTINUE TO MONITOR AND REPORT TO ONCOMING RN.
--- NOTE | 2018-09-25 04:31 | NUR ---
TYLENOL PT REQUESTED TYLENOL AT 0300, IT WAS NOT QUITE TIME FOR PT TO RECEIVE. STATED THAT I COULD GIVE 30 MINS EARLY AT 0430. PT AND DAUGHTER WERE AGREEABLE. WENT IN TO ASSESS AT THAT TIME, BOTH PT AND DAUGHTER WERE SLEEPING. WILL MONITOR AND ADMINISTER TYLENOL IF PT AWAKES AND REQUESTS AGAIN.
--- NOTE | 2018-09-25 13:45 | NUR ---
Spiritual care visit conducted. I introduced myself as I entered patient's room and patient welcomed me to sit down. 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 I normalized patient's experience, quoted inspirational scriptures and provided prayer. Patient responded well to the interventions and displayed evidence of restored judson. Patient expressed gratitude for the visit and the prayer.
--- NOTE | 2018-09-25 16:58 | NUR ---
Pt is well known to me from previous hospitalizations. He appears frail, but smiles easily and was welcoming of prayer and companionship. His dtr and grand dtr at bedside. Family is attentive and devoted. Met with dtr outside of room. She expressed concerns for the future as pt continues to decline. Family found pt's desire to change code status to DNR understandable but upsetting. Per dtr, pt's physician expressed concern about pt surviving this hospitalization. This is a rather dramatic shift. Provided theraputic listening and gentle memorial counselor to good effect. It may be time to discuss comfort vs recurrent SNF/hospitalizations. I will attempt this conversation in coming days. Palliative care may be beneficial.
--- NOTE | 2018-09-25 17:35 | NUR ---
SHIFT SUMMARY PATIENT UNABLE TO VOID THIS AFTERNOON. STRAIGHT CATH PERFORMED. UP WITH PT, REFUSING TO GET UP IN CHAIR WITH NURSING STAFF. ENCOURAGING ACTIVITY. FAMILY AT BEDSIDE THROUGHOUT THE SHIFT.
--- NOTE | 2018-09-25 22:58 | NUR ---
PT AWAKE DURING SHIFT REPORT, WITH FAMILY AT BS. PER ORDERS, PT TO BE BLADDER SCANNED Q6 HRS AND STRAIGHT CATH'D FOR PVR OF > 600cc. PER SHIFT REPORT, LAST BLADDER SCAN, PRIOR TO START OF NOC SHIFT SHOWING 489cc. PT HAS REMAINED DRY SINCE START OF SHIFT. PT HAS DECLINED NEEDING TO VOID EVERY Q1 HR CHECK. NEXT BLADDER SCAN TO BE DONE AT PR.
--- NOTE | 2018-09-26 00:28 | NUR ---
2350 PT DENIED NEEDING TO VOID AGAIN. DECLINED TO EVEN TRY. BLADDER SCAN DONE SHOWING 848ML. STRAIGHT CATH DONE PER ORDERS. 700ml OUT. BLADDER SCAN RECHECK'D SHOWING 23ml. PT REPORTED THAT HE DID NOT FEEL LIKE HE NEEDED TO VOID AND REPORTED THAT HE DID NOT NOTICE ANY DIFFERENCE AFTER DRAINING BLADDER. PT ALSO REPORTED THAT HE "USED HAVE TO PEE ALL THE TIME", BUT DOES NOT FEEL ANY URGE TO VOID NOW. PT TOLERATED CATH WELL. URINE DRK TEA COLORED, SLIGHTLY CLOUDY. WARM BLANKET GIVEN AND PT REPOSITIONED FOR COMFORT WHEN COMPLETE.
--- NOTE | 2018-09-26 04:07 | NUR ---
SHIFT SUMMARY PT AWAKE OFF AND ON DURING THE NIGHT. WATCHING TV WHEN AWAKE. IVF'S INFUSING PER EMAR. CONTINUES TO DENY NEEDS WHEN AWAKE. NO C/O. OCCASSIONAL LOOSE COUGH. LUNGS T/O DIMINISHED AND TIGHT WITH CRACKLES THRU OUT. SCD'S PLACED AT START OF SHIFT; PT TOLERATES WELL. ABD SOFT, SLIGHTLY DISTENDED. PT REPORTED NO BM SINCE SATURDAY 09/23. BOWEL CARE GIVEN PER EMAR. PER SHIFT REPORT, PT HAS NOT HAD AN APPETITE. PT REPORTED DIFFICULTY BEING ABLE TO VOID R/T ENLARGED PROSTATE WELL LACK OF BLADDER SENSATION KNOWING WHEN TO VOID. WILL BLADDER SCAN AGAIN AT 0600. REPOSITIONED WITH PILLOWS, PT DOES NOT LIKE TO MOVE MUCH. CALL LT IN REACH. FAMILY AT BS.
[2018-09-26 05:21] LABS: Anion Gap 7 mmol/L (6-16); Blood Urea Nitrogen 20 mg/dL (8-24); Bun/Creatinine Ratio 24.2 (12.0-20.0); CO2, Blood 24 mmol/L (21-32); Calcium, Blood 7.7 mg/dL (8.5-10.1); Chloride, Blood 109 mmol/L (98-108); Creatinine, Blood 0.83 mg/dL (0.60-1.20); Glomerular Filtration Rate >60 (60-); Glucose, Blood 93 mg/dL (70-99); Potassium, Blood 4.1 mmol/L (3.5-5.5); Sodium, Blood 140 mmol/L (136-145); Vancomycin, Trough 7.1 ug/mL (5.0-10.0)
[2018-09-26 05:26] LABS: BASOPHILS ABSOLUTE AUTO 0.04 K/mm3 (0.00-0.23); BASOPHILS PERCENT AUTO 0 % (0-2); EOSINOPHILS ABSOLUTE AUTO 0.07 K/mm3 (0.00-0.68); EOSINOPHILS PERCENT AUTO 1 % (0-6); Hematocrit 28.9 % (37.0-53.0); Hemoglobin 8.5 g/dL (13.5-17.5); IMMATURE GRAN ABSOLUTE AUTO 0.06 K/mm3 (0.00-0.10); IMMATURE GRAN PERCENT AUTO 1 % (0-1); LYMPHOCYTES ABSOLUTE AUTO 0.82 K/mm3 (0.84-5.20); LYMPHOCYTES PERCENT AUTO 8 % (21-46); MONOCYTES ABSOLUTE AUTO 0.44 K/mm3 (0.16-1.47); MONOCYTES PERCENT AUTO 5 % (4-13); Mean Corpuscular HGB Conc 29.4 g/dL (31.5-36.5); Mean Corpuscular Volume 92 fL (80-100); Mean Platelet Volume 9.3 fL (9.1-12.4); NEUTROPHILS ABSOLUTE AUTO 8.33 K/mm3 (1.96-9.15); NEUTROPHILS PERCENT AUTO 85 % (41-73); Platelet Count 260 K/mm3 (150-400); RDW Coefficient Variation 16.3 % (11.7-14.2); RDW Standard Deviation 55.5 fL (35.1-46.3); Red Blood Cell Count 3.15 M/mm3 (4.30-5.90); White Blood Cell Count 9.76 K/mm3 (4.00-11.30)
--- NOTE | 2018-09-27 04:18 | NUR ---
SHIFT SUMMARY PT ANXIOUS AT THE START OF SHIFT. REPORTED BEING SOB. RT IN TO SEEN PT; TX GIVEN. PT REPORTED THAT IT DIDN'T HELP. PT C/O "PAIN IN MY CHEST" FROM COUGHING AND NOW TRYING TO BREATHE. TYLENOL GIVEN FOR C/O PAIN WHEN PT FINISHED WITH RT TX. REFUSED 2ND DOSE OF MIRALAX AT HS, "NO, I JUST WANT TYLENOL". PT MEDICATED PER EMAR, BUT CONTINUED TO BE ANXIOUS AND SOB. LUNGS T/O WITH RHONCHI AND WHEEZES. DR LAFLEUR NOTIFIED, NEW ORDERS RECEIVED. PT STARTED CALMING A SHORT WHILE LATER TYLENOL AND LASIX TOOK EFFECT. PT WENT TO SLEEP AND WAS THEN INCONTINENT OF URINE. CLEANED AND CHANGED. PT WOKE LATER FOR CARE AND FOUND TO BE INCONTINENT AGAIN BEFORE BLADDER SCAN. PT ENCOURAGED TO GET UP TO TRY AND VOID AT BS, AND AVOID POSSIBLE STRAIGHT CATH. PT REFUSED. BLADDER SCAN DONE STILL SHOWING 988ml PVR. WHILE GOING TO OBTAIN SUPPLIES PT ABLE TO VOID AGAIN IN ATTENDS; UNKNOWINGLY. STILL DECLINED TO TRY AND USE URINAL. STRAIGHT CATH REMOVED 1050ml URINE. PT'S BREATHING WAS AND CONTINUES TO BE MUCH BETTER, SINCE IVF'S STOPPED AND LASIX GIVEN. PT HAS BEEN ABLE TO REST QUIETLY TONIGHT, SINCE THEN AND INBETWEEN CARE. PT'S DAUGHTER WENT HOME PRIOR TO START OF SHIFT AND DID NOT STAY PREVIOUS NIGHTS. PT WAS A LITTLE UPSET ABOUT THAT AT THE START OF SHIFT, BUT HAS ACTUALLY RESTED WELL PAST FEW HOURS. NEXT BLADDER SCAN DUE AT 0600. CALL LT IN REACH.
--- NOTE | 2018-09-27 16:48 | NUR ---
PATIENT HAS GOTTEN UP TO BSC TO POOP TWICE TODAY. HE HAS HAD 2 VOIDS WITH MINIMAL OUTPUT. STRAIGHT CATH ONE TIME FOR URINE. UP WITH THERAPIES 2X. O2 AT 5L, CONTINUE AT THIS RATE PER RT.
[2018-09-28 06:07] LABS: Vancomycin, Trough 13.5 ug/mL (5.0-10.0)
--- NOTE | 2018-09-28 06:37 | NUR ---
SHIFT SUMMARY PT SLEPT WELL THROUGH MOST OF THE NIGHT. DENIED PAIN THROUGHOUT THE SHIFT EXCEPT AFTER STRAIGHT CATH. BREATHING IMPROVED PER PT BUT PT DOES BECOME SOB AT TIMES. LUNG SOUNDS COARSE. PT REMAINS ON 5 L O2 NC. FIRST BLADDER SCAN OF THE SHIFT WAS 471 ML SO PT DID NOT HAVE TO BE CATHED BUT SECOND BLADDER SCAN AT THE END OF THE SHIFT READ 817 ML. STRAIGHT CATH DONE WITH 700 MLS OUT. PT REPORTED IT TO BE VERY PAINFUL DUE TO FREQUENCY OF BEING DONE. PT WAS ALSO INCONTINENT SEVERAL TIMES THROUGHOUT THE NIGHT BUT NOT A VERY LARGE AMOUNT. TYLENOL GIVEN FOLLOWING STRAIGHT CATH. DAUGHTER AT BEDSIDE AT THIS TIME. OTHERWISE NO ACUTE CHANGES. WILL CONTINUE TO MONITOR.
--- NOTE | 2018-09-28 10:05 | NUR ---
Echocardiogram completed.
--- NOTE | 2018-09-28 11:02 | NUR ---
Spiritual care visit conducted. Patient was lying in bed and alert when I entered the room. Patient stated that he was feeling better today. Patient's daughter Loreto was in the room and indicated that she was drained by the Patient's on going health issues and her recovery from her own surgery. I encouraged self-care for Loreto and reinforced helpful practices. I also provided companionship to patient. Patient showed signs of an elevated mood.
--- NOTE | 2018-09-28 17:00 | NUR ---
SHIFT SUMMARY PT HAS HAD NO ACUTE CHANGES THIS SHIFT, O2 TITRATED TO 3L SATS REMAIN GREATER THAN 90. PT WAS UP TO CHAIR 2X & BSC 2X THIS SHIFT, DAUGHTER AT BEDSIDE T/O SHIFT. PT BEDRESTING AT THIS TIME, WILL CONT TO MONITOR UNTIL REPORT GIVEN TO NOC RN.
--- NOTE | 2018-09-28 18:03 | NUR ---
Mr. Martinez smiles easily and engages well. He appears rather frail., but appeared to enjoy conversation. He spoke about how much he misses his who passed several years ago. They were for more the 60 years and he states he is looking forward to being with her again. Upon hearing this, dtrs becames tearful, but expresed understanding of their father's desire. I suspect, Mr. Martinez is holding on for his children as best he can. He would rather be home than here or in rehab. Is hospice appropriate? Pt and family may benefit from an understandable explaination about Mr. Martinez's prognosis and options going forward. Father and adult children are both hesitant to "upset" the other. Perhaps palliative care nursing team could facilitate family conference. I will remain available.
--- NOTE | 2018-09-29 04:40 | NUR ---
SHIFT SUMMARY PT'S BREATHING CONTINUES TO SLOWLY IMPROVE. 2300 BLADDER SCAN READING 976 ML AT START OF SHIFT, STRAIGHT CATHED AND GOT OUT 900 ML. PT TOLERATED THIS CATH BETTER THAN PREVIOUS TIMES REPORTING THAT THERE WAS LITTLE TO NO PAIN W/ INSERTION. ENCOURAGED PT TO GET UP OUT OF BED AND SIT ON BSC TO ATTEMPT TO VOID BUT PT UNWILLING THIS EVENING. BLADDER SCAN AT 0500 478 ML NOT REQUIRING STRAIGHT CATH. PT REPORTED SOME ACHINESS IN HIS BLE'S, MOST LIKELY FROM DECREASED MOBILITY. MEDICATED W/ TYLENOL 650 MG X 1. VSS. NO OTHER ACUTE CHANGES. WILL CONTINUE TO MONITOR AND REPORT TO DAY RN.
[2018-09-29 05:34] LABS: BASOPHILS ABSOLUTE AUTO 0.03 K/mm3 (0.00-0.23); BASOPHILS PERCENT AUTO 1 % (0-2); EOSINOPHILS ABSOLUTE AUTO 0.13 K/mm3 (0.00-0.68); EOSINOPHILS PERCENT AUTO 3 % (0-6); Hematocrit 27.8 % (37.0-53.0); Hemoglobin 8.6 g/dL (13.5-17.5); IMMATURE GRAN ABSOLUTE AUTO 0.08 K/mm3 (0.00-0.10); IMMATURE GRAN PERCENT AUTO 2 % (0-1); LYMPHOCYTES ABSOLUTE AUTO 1.22 K/mm3 (0.84-5.20); LYMPHOCYTES PERCENT AUTO 28 % (21-46); MONOCYTES ABSOLUTE AUTO 0.51 K/mm3 (0.16-1.47); MONOCYTES PERCENT AUTO 12 % (4-13); Mean Corpuscular HGB 26.7 pg (26.0-34.0); Mean Corpuscular HGB Conc 30.9 g/dL (31.5-36.5); Mean Platelet Volume 9.5 fL (9.1-12.4); NEUTROPHILS ABSOLUTE AUTO 2.34 K/mm3 (1.96-9.15); NEUTROPHILS PERCENT AUTO 54 % (41-73); Platelet Count 230 K/mm3 (150-400); RDW Coefficient Variation 15.9 % (11.7-14.2); RDW Standard Deviation 50.1 fL (35.1-46.3); Red Blood Cell Count 3.22 M/mm3 (4.30-5.90); White Blood Cell Count 4.31 K/mm3 (4.00-11.30)
[2018-09-29 05:37] LABS: Mean Corpuscular Volume 86 fL (80-100)
[2018-09-29 06:01] LABS: Anion Gap 6 mmol/L (6-16); Blood Urea Nitrogen 9 mg/dL (8-24); Bun/Creatinine Ratio 9.9 (12.0-20.0); CO2, Blood 32 mmol/L (21-32); Calcium, Blood 8.2 mg/dL (8.5-10.1); Chloride, Blood 104 mmol/L (98-108); Creatinine, Blood 0.91 mg/dL (0.60-1.20); Glomerular Filtration Rate >60 (60-); Glucose, Blood 92 mg/dL (70-99); Sodium, Blood 142 mmol/L (136-145)
--- NOTE | 2018-09-29 16:27 | NUR ---
SHIFT SUMMARY PT HAS HAD NO ACUTE CHANGES THIS SHIFT, MEDICATED 1X FOR PAIN 09/17, COMPLAINTS OF ABD PRESSURE BLADDER SCAN +600, GOT PT UP TO BSC AND WAS ABLE TO VOID. PT UP TO CHAIR FOR SEVERAL HOURS THIS SHIFT, BEDRESTING AT THIS TIME W/FAMILY AT BEDSIDE, WILL CONT TO MONITOR UNTIL REPORT GIVEN TO NOC RN.
--- NOTE | 2018-09-30 01:12 | NUR ---
PT'S BLADDER SCAN SHOWED >600 ML IN THE BLADDER. PT WAS ST CATHED FOR 550 ML. PT TOLERATED THE PROCEDURE WELL. NO COMPLAINTS.
--- NOTE | 2018-09-30 05:29 | NUR ---
VSS, AFEBRILE, A/O, [place], 3L NC, POWERGLIDE L UA, 2 PA TO BS, BLADDER SCAN Q 6 HRS, ST CATH FOR >[address]. [address] CATH AROUND MIDNIGHT AND THEN C/O BURNING FROM THE IODINE USE. THE BURNING WENT AWAY EVENTUALLY BUT PT MIGHT BECOMING SENSITIVE TO IODINE FROM FREQUENT ST CATHS. PT BELIEVES THAT HE MIGHT BE D/C'D ON TUESDAY SO A CAMARGO MIGHT BE A BETTER OPTIONS UNTIL THEN. S/P R FEMER FX, PAINFUL TO TURN/AMBULATE. PLEASANT AND COOPERATIVE
[2018-09-30 06:22] LABS: Vancomycin, Trough 14.8 ug/mL (5.0-10.0)
--- NOTE | 2018-09-30 16:25 | NUR ---
SHIFT SUMMARY- PT DENIES PAIN. DENIES N/V. PT REPORTS MILD SOB. 98% ON 3L O2 NC. DYSPNEA UPON MILD EXERTION. BLADDER SCAN 326 THIS AFTERNOON. 2-3 PERSON MAX ASSIST TO BSC/CHAIR. FAMILY IN TO SEE PT TODAY. NO OTHER SIGNIFICANT CHANGES THIS SHIFT.
--- NOTE | 2018-10-01 05:11 | NUR ---
VSS. AFEBRO;E. A/O. PT BLADDER SCANNED Q6 HRS. HOWEVER, HE IS GETTING OUT OF BED TO USE THE BSC W/2 -3 STAFF ASSIST. PT IS VERY WEAK BUT DOES URINATE AND MAKE BM MUCH EASIER WHEN OOB. NO NEED TO ST CATH HIM YET ON THIS SHIFT. PT TOLERATING HIS IV ATBX W/OUT ADVERSE EFFECTS. SLEPT WELL, NO COMPLAINTS.
--- NOTE | 2018-10-01 16:48 | NUR ---
SHIFT SUMMARY- PT C/O GROIN PAIN. MEDS GIVEN PER EMAR. BLADDER SCAN THIS AM WAS 915. STRAIGHT CATH THIS AM 675 OUT. PT REPORTS COMBINATION OF MEDS AND DRAINING BLADDER HAS RESOLVED HIS GROIN PAIN. BLADDER SCAN THIS PM 368. PT SWITCHED TO PO ANTIBIOTICS. FAMILY IN TO VISIT PT. PT DENIES N/V. REPORTS MILD SOB. 94% ON 2L O2 NC. BREATHING TREATMENTS PER EMAR. 2-3 MAX ASSIST TO BSC WITH GAIT BELT AND FWW. NO OTHER SIGNIFICANT CHANGES THIS SHIFT.
--- NOTE | 2018-10-02 04:19 | NUR ---
VSS, AFEBRILE, A/O, URINARY RETENTION BUT ALSO INCONT OF URINE, BLADDER SCANNED Q 6 HOURS, SLEPT WELL, PT ANTICIPATES BEING DISCHARGE TODAY OR TOMORROW. STATES THAT HE IS LOOKING FORWARD TO DISCHARGE. NO COMPLAINTS.
[2018-10-02 12:17] LABS: Anion Gap 5 mmol/L (6-16); Blood Urea Nitrogen 12 mg/dL (8-24); Bun/Creatinine Ratio 14.3 (12.0-20.0); CO2, Blood 34 mmol/L (21-32); Calcium, Blood 8.5 mg/dL (8.5-10.1); Chloride, Blood 100 mmol/L (98-108); Creatinine, Blood 0.84 mg/dL (0.60-1.20); Glomerular Filtration Rate >60 (60-); Glucose, Blood 116 mg/dL (70-99); Sodium, Blood 139 mmol/L (136-145)
--- NOTE | 2018-10-03 04:41 | NUR ---
SHIFT SUMMARY PATIENT HAS HAD AN UNEVENTFUL NIGHT. NO COMPLAINTS OF PAIN OR DISCOMFORT. BLADDER SCANS CONTINUE Q6HRS; HAS NOT REQUIRED TO BE STRAIGHT CATH'ED THIS SHIFT. PATIENT HAD AN INCONTINENT VOID AFTER LAST SCAN. PATIENT IS APPROPRIATE WITH STAFF. WILL CONTINUE TO MONITOR.
--- NOTE | 2018-10-03 06:34 | NUR ---
TURNED PATIENTS O2 DOWN TO 2L AT [address] LAFLEUR ORDERS TO ATTEMPT TO WEAN OFF DAYTIME OXYGEN. WILL NOTIFY DAYSHIFT RN TO MONITOR O2 CLOSELY AND TO CONTINUE TO WEAN TOLERATED.
[2018-10-03] MEDS ORDERED: SACC250C PO (16:06)
[2018-10-03] MEDS ORDERED: LEVFLO500 PO (16:07)
--- NOTE | 2018-10-03 16:07 | NUR ---
DISCHARGE INSTRUCTIONS FA[facility]ED TO [facility]. W/C TRANSPORT HERE TO PICK PT UP VIA [employer]. POWER GLIDE KEPT IN PER DAUGHTERS REQUEST AND APPROVED BY DR. LAFLEUR. REPORT CALLED TO BRADY AT [facility].
== END 2018-10-03 16:39 | DRG 177 ==
LOC: ER 03:35 → MEDS 03:36 → ERHOLD 03:37 → ER 05:48 → MEDS 05:48 → ENPENDDIS 10-03 11:49 → MEDS 10-03 16:39
PROVIDERS: Emergency Medicine; Hospitalist; Pharmacist; ADMIT Internal Medicine
DX: J15.6 Pneumonia due to other Gram-negative bacteria (principal); J96.01 Acute respiratory failure with hypoxia; I50.31 Acute diastolic (congestive) heart failure; J44.0 Chronic obstructive pulmonary disease with (acute) lower respiratory infection; J44.1 Chronic obstructive pulmonary disease with (acute) exacerbation; I11.0 Hypertensive heart disease with heart failure; D63.8 Anemia in other chronic diseases classified elsewhere; E78.5 Hyperlipidemia, unspecified; Z87.891 Personal history of nicotine dependence; Z86.73 Personal history of transient ischemic attack (TIA), and cerebral infarction without residual deficits; N40.1 Benign prostatic hyperplasia with lower urinary tract symptoms; N13.9 Obstructive and reflux uropathy, unspecified; K59.00 Constipation, unspecified; E87.6 Hypokalemia; D50.0 Iron deficiency anemia secondary to blood loss (chronic)
CPT/HCPCS: 36415; 51701; 71045; 71046; 80048; 80053; 80202; 82565; 83605; 83880; 84484; 85025; 87040; 87070; 87205; 92610; 93005; 93010; 93306; 94010; 94640; 94664; 94667; 94760; 96361; 96365; 96367; 96375; 97110; 97162; 97165; 97530; 98960; 99285-25; J0744; J1650; J1940; J1956; J2405; J2543; J3370; J7030; J7050

== ENCOUNTER 2019-04-14 08:09 | Inpatient (IN) | payer MEDICARE ==
[~2019-04-14] VITALS: Ht 167.6 cm; Wt 79.4 kg
[~2019-04-14 08:09] MED LIST changes: +ALLERGY RELIE15.8 ML; +ASPI325 PO; +ASPI81CH PO; +Acephen650 MG PR; +Azor 5-20 MG T1 EACH PO; +BISA10S PR; +CVS DISPOSABLE399 ML PR; +Calci-Chew500 MG PO; +Ipratropium Bro15 ML; +Milk Of Ma400 MG/5 M PO; +SACC250C PO; +[UNRECOGNIZED DRUG - CODE] PO
[2019-04-14 08:48] LABS: BASOPHILS ABSOLUTE AUTO 0.05 K/mm3 (0.00-0.23); BASOPHILS PERCENT AUTO 1 % (0-2); EOSINOPHILS ABSOLUTE AUTO 0.12 K/mm3 (0.00-0.68); EOSINOPHILS PERCENT AUTO 1 % (0-6); Hematocrit 34.1 % (37.0-53.0); Hemoglobin 10.5 g/dL (13.5-17.5); IMMATURE GRAN ABSOLUTE AUTO 0.03 K/mm3 (0.00-0.10); IMMATURE GRAN PERCENT AUTO 0 % (0-1); LYMPHOCYTES ABSOLUTE AUTO 2.55 K/mm3 (0.84-5.20); LYMPHOCYTES PERCENT AUTO 25 % (21-46); MONOCYTES PERCENT AUTO 9 % (4-13); Mean Corpuscular HGB 25.2 pg (26.0-34.0); Mean Corpuscular HGB Conc 30.8 g/dL (31.5-36.5); Mean Corpuscular Volume 82 fL (80-100); Mean Platelet Volume 8.9 fL (9.1-12.4); NEUTROPHILS PERCENT AUTO 64 % (41-73); Platelet Count 219 K/mm3 (150-400); RDW Coefficient Variation 16.9 % (11.7-14.2); RDW Standard Deviation 50.2 fL (35.1-46.3); Red Blood Cell Count 4.16 M/mm3 (4.30-5.90); White Blood Cell Count 10.25 K/mm3 (4.00-11.30)
[2019-04-14 09:05] LABS: Alanine Aminotransfer (ALT/SGP 30 U/L (12-78); Albumin, Blood 3.2 g/dL (3.4-5.0); Albumin/Globulin Ratio 0.7 (0.8-1.8); Alk Phos 161 U/L (50-136); Anion Gap 6 mmol/L (6-16); Aspartate Aminotrans (AST/SGOT 20 U/L (12-37); Bilirubin, Total 0.3 mg/dL (0.1-1.0); Blood Urea Nitrogen 22 mg/dL (8-24); Bun/Creatinine Ratio 19.8 (12.0-20.0); CO2, Blood 28 mmol/L (21-32); Calcium, Blood 8.8 mg/dL (8.5-10.1); Chloride, Blood 105 mmol/L (98-108); Creatinine, Blood 1.11 mg/dL (0.60-1.20); Globulin, Blood 4.9 g/dL (2.2-4.0); Glomerular Filtration Rate >60 (60-); Glucose, Blood 99 mg/dL (70-99); Potassium, Blood 3.9 mmol/L (3.5-5.5); Sodium, Blood 139 mmol/L (136-145); Total Protein, Blood 8.1 g/dL (6.4-8.2)
[2019-04-14] MEDS ORDERED: BUDE10.22 INH (12:17)
[2019-04-14] MEDS ORDERED: [UNRECOGNIZED DRUG - OTHER] PO (12:19)
[2019-04-14] MEDS ORDERED: PROP80ER PO (12:21)
--- NOTE | 2019-04-14 13:58 | NUR ---
RECEIVED REPORT FROM ER JAY MCCRAY. PATIENT ARRIVED TO UNIT WITH 1 PERSON PIVOT TRANSFER TO BED. 2L O2 VIA NC. PT A/O X 3, ARRIVED WITH DAUGHTER.
[2019-04-14 14:12] LABS: Adenovirus Not Detected (NOT DETECT); Bordetella pertussis Not Detected (NOT DETECT); Chlamydophila pneumoniae Not Detected (NOT DETECT); Coronavirus 229E Not Detected (NOT DETECT); Coronavirus HKU1 Not Detected (NOT DETECT); Coronavirus NL63 Not Detected (NOT DETECT); Coronavirus OC43 Not Detected (NOT DETECT); Human Metapneumovirus Not Detected (NOT DETECT); Human Rhinovirus/Enterovirus Detected (NOT DETECT); Influenza A Not Detected (NOT DETECT); Influenza A/2009-H1 Not Detected (NOT DETECT); Influenza A/H1 Not Detected (NOT DETECT); Influenza A/H3 Not Detected (NOT DETECT); Influenza B Not Detected (NOT DETECT); Mycoplasma pneumoniae Not Detected (NOT DETECT); Parainfluenza Virus 1 Not Detected (NOT DETECT); Parainfluenza Virus 2 Not Detected (NOT DETECT); Parainfluenza Virus 3 Not Detected (NOT DETECT); Parainfluenza Virus 4 Not Detected (NOT DETECT); Respiratory Syncytial Virus Not Detected (NOT DETECT)
--- NOTE | 2019-04-14 16:26 | NUR ---
Physician notified of BP 167/86 LA 84. Treated per EMAR with telephone orders. Reassessed after blood pressure meds given; BP: 133/70, HR: 84.
--- NOTE | 2019-04-14 17:42 | NUR ---
Shift Summary Received patient from ER at around 1325. Patient is A/Ox3, but states he is not in the hospital for SOB, rather he came in for his cough. Pt seems disgruntled and has been refusing NATE hose. Take meds whole with water. See previous notes about vital signs. Pt remains on 2L O2 via NC @ 93%; baseline is 2L O2 at night as needed. No c/o of pain/N/V. Incontinent c 1-2 assist.
[2019-04-15 04:39] LABS: BASOPHILS ABSOLUTE AUTO 0.01 K/mm3 (0.00-0.23); BASOPHILS PERCENT AUTO 0 % (0-2); EOSINOPHILS PERCENT AUTO 0 % (0-6); Hematocrit 34.4 % (37.0-53.0); Hemoglobin 10.4 g/dL (13.5-17.5); IMMATURE GRAN ABSOLUTE AUTO 0.06 K/mm3 (0.00-0.10); IMMATURE GRAN PERCENT AUTO 1 % (0-1); LYMPHOCYTES ABSOLUTE AUTO 1.44 K/mm3 (0.84-5.20); LYMPHOCYTES PERCENT AUTO 18 % (21-46); MONOCYTES ABSOLUTE AUTO 0.19 K/mm3 (0.16-1.47); MONOCYTES PERCENT AUTO 2 % (4-13); Mean Corpuscular HGB 25.1 pg (26.0-34.0); Mean Corpuscular HGB Conc 30.2 g/dL (31.5-36.5); Mean Corpuscular Volume 83 fL (80-100); Mean Platelet Volume 9.1 fL (9.1-12.4); NEUTROPHILS ABSOLUTE AUTO 6.29 K/mm3 (1.96-9.15); NEUTROPHILS PERCENT AUTO 79 % (41-73); Platelet Count 240 K/mm3 (150-400); RDW Coefficient Variation 16.3 % (11.7-14.2); RDW Standard Deviation 49.1 fL (35.1-46.3); Red Blood Cell Count 4.14 M/mm3 (4.30-5.90); White Blood Cell Count 7.99 K/mm3 (4.00-11.30)
[2019-04-15 04:54] LABS: Anion Gap 8 mmol/L (6-16); Blood Urea Nitrogen 30 mg/dL (8-24); Bun/Creatinine Ratio 30.5 (12.0-20.0); CO2, Blood 27 mmol/L (21-32); Calcium, Blood 8.8 mg/dL (8.5-10.1); Chloride, Blood 104 mmol/L (98-108); Creatinine, Blood 0.99 mg/dL (0.60-1.20); Glomerular Filtration Rate >60 (60-); Glucose, Blood 159 mg/dL (70-99); Potassium, Blood 4.3 mmol/L (3.5-5.5); Sodium, Blood 139 mmol/L (136-145)
--- NOTE | 2019-04-15 05:52 | NUR ---
SHIFT SUMMARY PT SLEPT WELL DURING THE NIGHT. NO ACUTE EVENTS NOTED DURING THE NIGHT. OXYGEN REMAINS ON PER NC. DAUGHTER BRINGING IN SOME HOME MEDICATIONS, STATES HE WAS JUST STARTING THEM AT THE BEGINNING OF WEEK AND NEEDS TO BE ON THEM. WILL LET ONCOMING SHIFT KNOW. WILL CONTINUE TO MONITOR.
--- NOTE | 2019-04-15 15:59 | NUR ---
Dr. Quinteros called RE: orders for home meds (Terbinafine and Myrbetriq). Orders received for NOW dose, given per EMAR.
--- NOTE | 2019-04-15 17:12 | NUR ---
Shift Summary A/O, able to make needs known when asked. Mostly requests the staff to leave him alone so he can rest. No acute changes this shift. No c/o pain, N/V/D. Tele: SR 65. See previous notes for more activities t/o the day. Plan of care is to change to PO steroids in AM and perform Rest+Exercise O2 test. On RA, pt saturated at 88-90%. Currently on 2L O2 via NC @ 97%.
--- NOTE | 2019-04-16 06:01 | NUR ---
SHIFT SUMMARY PT A/O BUT IRRITABLE AT TIMES. INCONT OF URINE. WAS ABLE TO DOZE OFF AND ON T/O NIGHT. 2L O2 NC. NO C/O PAIN. WHEEZY LUNG SOUNDS T/O. CALL LIGHT IN REACH.
--- NOTE | 2019-04-16 10:30 | NUR ---
Notified Physician This RN notified Dr. Sykes of Home O2 Eval results.
--- NOTE | 2019-04-16 11:16 | NUR ---
Telemetry Patient has been stable on tele, received orders to DC tele per Dr. Sykes.
--- NOTE | 2019-04-16 12:50 | NUR ---
Education RE: IV drug use Educated patient on the need to stay abstinence from IV drug use while in hospital in order to treat infection appropriately. Reviewed goals with patient and explained that his safety and recovery is our utmost concern. Patient agreed and seemed receptive to education.
--- NOTE | 2019-04-16 15:42 | NUR ---
Spiritual Care inital note: Mr. Martinez is well-known to me from previous hospitalizations. He's experienced loss of home, independance, mobility since he fell earlier this year and broke his hip. He spoke at length about this. He was a memeber of the [facility], but has been unable to attend since the move to assisted living. Mr. Martinez appears to have accepted these changes, but tells me he remains hopeful he will be able to walk again with PT. He became tearful during prayer and began to speak about his who passed ten years ago. This appeared to be a beneficial theraputic visit for Mr. Hernandez. On another note, I had a referral to speak to pt about POLST/AD. He has a POLST on file and is happy with this plan. I will remain available.
--- NOTE | 2019-04-16 17:34 | NUR ---
Shift Summary A/O, cooperative with care. Pt is ornery as usual, but pleasant. Home O2 Eval was done by RT today. Post-void residuals x 3 were done (see documentation). Patient has been up in chair frequently t/o the day with 1 SBA c FWW to bed. No other acute changes this shift. VSS, afebrile, 94% on RA.
[2019-04-16] MEDS ORDERED: Prednisone10 MG PO (19:36)
[2019-04-16] MEDS ORDERED: MYRBETRIQ25 MG PO (19:38)
== END 2019-04-16 20:15 | disposition home or self-care (01) | DRG 189 ==
LOC: ER 08:09 → MEDS 11:47
PROVIDERS: Physician Assistant; ADMIT Hospitalist
DX: J96.01 Acute respiratory failure with hypoxia (principal); J44.1 Chronic obstructive pulmonary disease with (acute) exacerbation; Z66 Do not resuscitate; I50.22 Chronic systolic (congestive) heart failure; J02.8 Acute pharyngitis due to other specified organisms; B34.1 Enterovirus infection, unspecified; Z79.82 Long term (current) use of aspirin; Z99.81 Dependence on supplemental oxygen; Z87.891 Personal history of nicotine dependence; I71.4 Abdominal aortic aneurysm, without rupture; Z90.79 Acquired absence of other genital organ(s); E78.5 Hyperlipidemia, unspecified; J02.9 Acute pharyngitis, unspecified; R35.0 Frequency of micturition; N40.1 Benign prostatic hyperplasia with lower urinary tract symptoms; G25.0 Essential tremor; B97.89 Other viral agents as the cause of diseases classified elsewhere; I11.0 Hypertensive heart disease with heart failure
CPT/HCPCS: 0099U; 36415; 71046; 80048; 80053; 80076; 83880; 84484; 85025; 87081; 87430; 93005; 93010; 94640; 94760; 94761; 96374; 99285-25; J2930; J7512

== ENCOUNTER 2019-04-27 12:06 | Emergency (ER) | payer MEDICARE ==
[~2019-04-27] VITALS: Ht 162.6 cm; Wt 79.4 kg
[~2019-04-27 12:06] MED LIST changes: +BUDE10.22 INH; +MYRBETRIQ25 MG PO; +PROP80ER PO; +Prednisone10 MG PO; +[UNRECOGNIZED DRUG - OTHER] PO
[2019-04-27] MEDS ORDERED: Acyclovir800 MG PO (12:44)
== END 2019-04-27 12:50 | disposition home or self-care (01) ==
LOC: ER 12:06
DX: B02.9 Zoster without complications (principal); Z79.899 Other long term (current) drug therapy; Z79.82 Long term (current) use of aspirin; Z79.52 Long term (current) use of systemic steroids; I10 Essential (primary) hypertension; J44.9 Chronic obstructive pulmonary disease, unspecified; Z86.73 Personal history of transient ischemic attack (TIA), and cerebral infarction without residual deficits; G20 Parkinson's disease; Z87.891 Personal history of nicotine dependence
CPT/HCPCS: 99282

== ENCOUNTER 2019-07-06 03:43 | Inpatient (IN) | payer MEDICARE ==
[~2019-07-06] VITALS: Ht 157.5 cm; Wt 75.5 kg
[~2019-07-06 03:43] MED LIST changes: -ALLERGY RELIE15.8 ML; +Acyclovir800 MG PO; +Flonase 0.05% N16 GM
[2019-07-06 04:18] LABS: PCO2 Arterial 51.8 mmHg (35-45); PO2 Arterial 74.6 mmHg (80-100); pH Blood Arterial 7.33 (7.35-7.45)
[2019-07-06 04:18] LABS: BASOPHILS ABSOLUTE AUTO 0.06 K/mm3 (0.00-0.23); BASOPHILS PERCENT AUTO 0 % (0-2); EOSINOPHILS ABSOLUTE AUTO 0.31 K/mm3 (0.00-0.68); EOSINOPHILS PERCENT AUTO 2 % (0-6); Hemoglobin 12.3 g/dL (13.5-17.5); IMMATURE GRAN ABSOLUTE AUTO 0.06 K/mm3 (0.00-0.10); IMMATURE GRAN PERCENT AUTO 0 % (0-1); LYMPHOCYTES PERCENT AUTO 16 % (21-46); MONOCYTES PERCENT AUTO 7 % (4-13); Mean Corpuscular HGB 25.5 pg (26.0-34.0); Mean Corpuscular Volume 85 fL (80-100); Mean Platelet Volume 8.9 fL (9.1-12.4); NEUTROPHILS ABSOLUTE AUTO 14.02 K/mm3 (1.96-9.15); NEUTROPHILS PERCENT AUTO 75 % (41-73); Platelet Count 280 K/mm3 (150-400); RDW Coefficient Variation 15.1 % (11.7-14.2); RDW Standard Deviation 47.1 fL (35.1-46.3); Red Blood Cell Count 4.82 M/mm3 (4.30-5.90); White Blood Cell Count 18.65 K/mm3 (4.00-11.30)
[2019-07-06 04:39] LABS: Alanine Aminotransfer (ALT/SGP 35 U/L (12-78); Albumin, Blood 3.5 g/dL (3.4-5.0); Albumin/Globulin Ratio 0.6 (0.8-1.8); Alk Phos 135 U/L (50-136); Anion Gap 5 mmol/L (6-16); Aspartate Aminotrans (AST/SGOT 28 U/L (12-37); Bilirubin, Total 0.4 mg/dL (0.1-1.0); Blood Urea Nitrogen 17 mg/dL (8-24); CO2, Blood 28 mmol/L (21-32); Calcium, Blood 9.1 mg/dL (8.5-10.1); Chloride, Blood 106 mmol/L (98-108); Creatinine, Blood 1.13 mg/dL (0.60-1.20); Globulin, Blood 5.5 g/dL (2.2-4.0); Glomerular Filtration Rate >60 (60-); Glucose, Blood 137 mg/dL (70-99); Magnesium, Blood 1.8 mg/dL (1.6-2.4); Sodium, Blood 139 mmol/L (136-145); Troponin I <0.015 ng/mL (0.000-0.040)
--- NOTE | 2019-07-06 18:10 | NUR ---
SHIFT SUMMARY: PATIENT ADMIT FROM ED THIS SHIFT. PT A&O; CALM AND COOPERATIVE WITH CARE. NO C/O PAIN THIS SHIFT. PT ON O2 @ 4L; PT USES 2L @ HOME ([facility]). PT IN CONTACT ISO FOR SHINGLES; DRY, CRUSTY SORES ON PANNUS. IV ABX CONTINUING. WCTM.
[2019-07-06 19:47] LABS: Adenovirus Not Detected (NOT DETECT)
[2019-07-06 19:48] LABS: Bordetella pertussis Not Detected (NOT DETECT); Chlamydophila pneumoniae Not Detected (NOT DETECT); Coronavirus 229E Not Detected (NOT DETECT); Coronavirus HKU1 Not Detected (NOT DETECT); Coronavirus NL63 Not Detected (NOT DETECT); Coronavirus OC43 Not Detected (NOT DETECT); Human Metapneumovirus Not Detected (NOT DETECT); Human Rhinovirus/Enterovirus Detected (NOT DETECT); Influenza A Not Detected (NOT DETECT); Influenza A/2009-H1 Not Detected (NOT DETECT); Influenza A/H1 Not Detected (NOT DETECT); Influenza A/H3 Not Detected (NOT DETECT); Influenza B Not Detected (NOT DETECT); Mycoplasma pneumoniae Not Detected (NOT DETECT); Parainfluenza Virus 1 Not Detected (NOT DETECT); Parainfluenza Virus 2 Not Detected (NOT DETECT); Parainfluenza Virus 3 Not Detected (NOT DETECT); Parainfluenza Virus 4 Not Detected (NOT DETECT); Respiratory Syncytial Virus Not Detected (NOT DETECT)
--- NOTE | 2019-07-07 04:27 | NUR ---
SHIFT SUMMARY: 89 Y/O MALE RESTED COMFORTABLY ALL SHIFT, PT HAD FREQUENT URINATION INCONTINENCE VIA ATTENDS DIAPERS CHANGED, ALERT AND ORIENTED X 2, ABLE TO FOLLOW ALL SIMPLE VERBAL COMMANDS, CONTINUOUS PULSE OXIMETER REFLECTS 97% WHILE WEARING O2 AT 4L/M PER NASAL CANNULA, NO SHINGLES WERE NOTED ANYPLACE ON BODY (ISOLATION WAS DISCONTINUED AND FACUNDO GHOTRA RN, CHARGE NURSE ADVISED)--PT HAD JUST COMPLETED ACYLOVIR IN PAST FEW WEEKS FOR SHINGLES TO GROIN AREA PER FAMILY, BED ALARM APPLIED, BED LOW POSITION WITH CALL LIGHT AT SIDE.
[2019-07-07 05:08] LABS: BASOPHILS ABSOLUTE AUTO 0.04 K/mm3 (0.00-0.23); BASOPHILS PERCENT AUTO 0 % (0-2); EOSINOPHILS ABSOLUTE AUTO 0.01 K/mm3 (0.00-0.68); EOSINOPHILS PERCENT AUTO 0 % (0-6); Hematocrit 31.8 % (37.0-53.0); Hemoglobin 9.4 g/dL (13.5-17.5); IMMATURE GRAN ABSOLUTE AUTO 0.13 K/mm3 (0.00-0.10); IMMATURE GRAN PERCENT AUTO 1 % (0-1); LYMPHOCYTES PERCENT AUTO 17 % (21-46); MONOCYTES ABSOLUTE AUTO 1.11 K/mm3 (0.16-1.47); MONOCYTES PERCENT AUTO 6 % (4-13); Mean Corpuscular HGB 25.3 pg (26.0-34.0); Mean Corpuscular HGB Conc 29.6 g/dL (31.5-36.5); Mean Corpuscular Volume 86 fL (80-100); Mean Platelet Volume 9.5 fL (9.1-12.4); NEUTROPHILS PERCENT AUTO 76 % (41-73); Platelet Count 215 K/mm3 (150-400); RDW Coefficient Variation 15.4 % (11.7-14.2); Red Blood Cell Count 3.72 M/mm3 (4.30-5.90); White Blood Cell Count 17.89 K/mm3 (4.00-11.30)
[2019-07-07 06:12] LABS: Albumin, Blood 2.5 g/dL (3.4-5.0); Albumin/Globulin Ratio 0.6 (0.8-1.8); Bilirubin, Total 0.3 mg/dL (0.1-1.0); Bun/Creatinine Ratio 20.8 (12.0-20.0); Calcium, Blood 8.6 mg/dL (8.5-10.1); Creatinine, Blood 1.3 mg/dL (0.60-1.20); Globulin, Blood 4.5 g/dL (2.2-4.0); Potassium, Blood 3.9 mmol/L (3.5-5.5)
--- NOTE | 2019-07-07 17:51 | NUR ---
SHIFT SUMMARY: NO ACUTE CHANGES TO REPORT THIS SHIFT. PT A&OX2; CALM AND COOPERATIVE WITH CARE. NO C/O PAIN THIS SHIFT. PT INCONTINENT OF BLADDER; ATTENDS IN PLACE; SKIN C/D/I. O2 @ 4L VIA NASAL CANNULA. PT UP IN CHAIR FOR DINNER. LR 0.5L BOLUS; LR @ 100 CONTINUING; IV ABX CONTINUING. WCTM.
[2019-07-07 18:45] LABS: Anion Gap 8 mmol/L (6-16); Blood Urea Nitrogen 30 mg/dL (8-24); Bun/Creatinine Ratio 25.9 (12.0-20.0); CO2, Blood 23 mmol/L (21-32); Calcium, Blood 8.5 mg/dL (8.5-10.1); Chloride, Blood 106 mmol/L (98-108); Creatinine, Blood 1.16 mg/dL (0.60-1.20); Glomerular Filtration Rate >60 (60-); Glucose, Blood 150 mg/dL (70-99); Potassium, Blood 4.6 mmol/L (3.5-5.5); Sodium, Blood 137 mmol/L (136-145)
--- NOTE | 2019-07-08 04:21 | NUR ---
SHIFT SUMMARY: 89 Y/O MALE RESTED COMFORTABLY ALL SHIFT, DENIES PAIN OR NAUSEA, CONTINUOUS PULSE OXIMETER REFLECTS 92% SATURATIONS ON O2 AT 3L/M PER NASAL CANNNULA, HEART RATE 54; ALERT AND ORIENTED X 3, VERY HARD OF HEARING AND REQUIRES NURSING STAFF TO RAISE VOICE MONOTONES WHEN SPOKEN TOO FOR ALL NEEDS, PT REQUIRED NEW IV RESTART X 2 AFTER IVS WHEN SQ, TOLERATED PROCEDURE WELL, BED ALARM APPLIED, BED LOW POSITION WITH CALL LIGHT AT SIDE.
[2019-07-08 08:45] LABS: BASOPHILS ABSOLUTE AUTO 0.03 K/mm3 (0.00-0.23); BASOPHILS PERCENT AUTO 0 % (0-2); EOSINOPHILS ABSOLUTE AUTO 0.02 K/mm3 (0.00-0.68); EOSINOPHILS PERCENT AUTO 0 % (0-6); Hematocrit 30.4 % (37.0-53.0); Hemoglobin 9.1 g/dL (13.5-17.5); IMMATURE GRAN ABSOLUTE AUTO 0.07 K/mm3 (0.00-0.10); IMMATURE GRAN PERCENT AUTO 1 % (0-1); LYMPHOCYTES ABSOLUTE AUTO 2.96 K/mm3 (0.84-5.20); LYMPHOCYTES PERCENT AUTO 22 % (21-46); MONOCYTES ABSOLUTE AUTO 0.94 K/mm3 (0.16-1.47); MONOCYTES PERCENT AUTO 7 % (4-13); Mean Corpuscular HGB 25.9 pg (26.0-34.0); Mean Corpuscular HGB Conc 29.9 g/dL (31.5-36.5); Mean Corpuscular Volume 87 fL (80-100); Mean Platelet Volume 9.6 fL (9.1-12.4); NEUTROPHILS ABSOLUTE AUTO 9.51 K/mm3 (1.96-9.15); NEUTROPHILS PERCENT AUTO 70 % (41-73); Platelet Count 225 K/mm3 (150-400); RDW Coefficient Variation 15.3 % (11.7-14.2); RDW Standard Deviation 48.6 fL (35.1-46.3); Red Blood Cell Count 3.51 M/mm3 (4.30-5.90); White Blood Cell Count 13.53 K/mm3 (4.00-11.30)
[2019-07-08 09:04] LABS: Anion Gap 6 mmol/L (6-16); Blood Urea Nitrogen 29 mg/dL (8-24); Bun/Creatinine Ratio 27.4 (12.0-20.0); CO2, Blood 28 mmol/L (21-32); Calcium, Blood 8.5 mg/dL (8.5-10.1); Chloride, Blood 107 mmol/L (98-108); Creatinine, Blood 1.06 mg/dL (0.60-1.20); Glomerular Filtration Rate >60 (60-); Glucose, Blood 110 mg/dL (70-99); Potassium, Blood 3.9 mmol/L (3.5-5.5); Sodium, Blood 141 mmol/L (136-145)
--- NOTE | 2019-07-08 19:16 | NUR ---
SHIFT SUMMARY: NO ACUTE CHANGES TO REPORT THIS SHIFT. PT A&O X3; CALM AND COOPERATIVE WITH CARE. NO C/O PAIN OR NAUSEA THIS SHIFT. O2 TITRATED TO 2L THIS SHIFT-PT USES 2L @ HOME. IV ABX D/C'd THIS SHIFT; FLUIDS D/C'd. PT UP IN CHAIR X2 THIS SHIFT. R/T FOLLOWING. EXPECTED D/C BACK TO [facility] MONDAY 07/09. REPORT GIVEN TO NIDHI MCCRAY.
--- NOTE | 2019-07-09 04:11 | NUR ---
SHIFT SUMMARY- PT. A&OX3, RESTED COMFORTABLY IN BED T/O THE NIGHT. NO APPARENT DISTRESS NOTED. PT. ON 2L NC AND CONT PULSE OX. SATS AND VSS. PT. INCONTINENT, ATTENDS IN PLACE. DENIED ANY PAIN OR DISCOMFORT T/O THE SHIFT OR ANY OTHER NEEDS. CALL LIGHT WITHIN REACH, SIDE RAILS UP X2, AND BED ALARM ON. WILL CONT TO MONITOR.
[2019-07-09 05:42] LABS: BASOPHILS ABSOLUTE AUTO 0.02 K/mm3 (0.00-0.23); BASOPHILS PERCENT AUTO 0 % (0-2); EOSINOPHILS PERCENT AUTO 0 % (0-6); Hemoglobin 9.4 g/dL (13.5-17.5); IMMATURE GRAN ABSOLUTE AUTO 0.14 K/mm3 (0.00-0.10); IMMATURE GRAN PERCENT AUTO 1 % (0-1); LYMPHOCYTES ABSOLUTE AUTO 2.43 K/mm3 (0.84-5.20); LYMPHOCYTES PERCENT AUTO 19 % (21-46); MONOCYTES ABSOLUTE AUTO 0.87 K/mm3 (0.16-1.47); MONOCYTES PERCENT AUTO 7 % (4-13); Mean Corpuscular HGB 25.3 pg (26.0-34.0); Mean Corpuscular HGB Conc 29.4 g/dL (31.5-36.5); Mean Corpuscular Volume 86 fL (80-100); Mean Platelet Volume 9.5 fL (9.1-12.4); NEUTROPHILS ABSOLUTE AUTO 9.16 K/mm3 (1.96-9.15); NEUTROPHILS PERCENT AUTO 73 % (41-73); Platelet Count 250 K/mm3 (150-400); RDW Coefficient Variation 14.9 % (11.7-14.2); RDW Standard Deviation 47.2 fL (35.1-46.3); Red Blood Cell Count 3.72 M/mm3 (4.30-5.90); White Blood Cell Count 12.62 K/mm3 (4.00-11.30)
--- NOTE | 2019-07-09 16:02 | NUR ---
Mr. Martinez was pleasant, smiled easily and appeared to enjoy companionship/conversation. He tells me he is sad about Dr. Sykes's correction, and we spoke at length about this 35 year relationship. Mr. Martinez allowed me to pray for him. We have an easy rapport. I will remain available.
--- NOTE | 2019-07-09 17:05 | NUR ---
SUMMARY PT RESTING QUIETLY IN BED, FAMILY HAS BEEN AT THE BEDSIDE FOR MOST OF THE DAY, PT HAS BEEN UP TO THE CHAIR FOR MEALS, HAS WORKED WITH THERAPY TODAY, PLAN FOR POSSIBLE DC IN AM WITH HOME HEALTH, PT AND FAMILY HAVE PICKED [facility], LIAISON HAS BEEN NOTIFIED, VSS, NO ACUTE CHANGES, WILL CONT TO MONITOR
--- NOTE | 2019-07-10 05:00 | NUR ---
SHIFT SUMMARY- NO AUTE CHANGES OVERNIGHT. PT. RESTED WELL T/O THE SHIFT, NO APPARENT DISTRESS NOTED. PT. DENIED ANY NEEDS DURING THE NIGHT. ANTICIPATING DC IN AM W/HH. CALL LIGHT WITHIN REACH AND SIDE RAILS UP X2. WILL CONT TO MONITOR.
[2019-07-10] MEDS ORDERED: Azithromycin250 MG PO (12:42)
[2019-07-10] MEDS ORDERED: Prednisone10 MG PO (12:43)
[2019-07-10] MEDS ORDERED: Florastor250 MG PO (12:43)
[2019-07-10] MEDS ORDERED: ZOLOFT25 MG PO (12:44)
--- NOTE | 2019-07-10 15:51 | NUR ---
PT DISCHARGED FROM UNIT AT 1552 PT LEFT VIA WHEEL CHAIR. REVIEWED DISCHARGE INSTRUCTIONS. APPLIED HOME OXYGEN. NO QUESTIONS AT THIS TIME
--- NOTE | 2019-07-10 18:17 | NUR ---
Mr. Martinez was in good spirits this morning when I visited. He was very happy that he was able to walk down hallway today with PT. He really wants to regain ihs strength and be more independant. I provided prayer and encouragement to good effect. He is being discharged today.
== END 2019-07-10 15:48 | disposition home or self-care (01) | DRG 193 ==
LOC: ER 03:43 → MEDS 05:28
PROVIDERS: Emergency Medicine; ADMIT Family Medicine
DX: J18.9 Pneumonia, unspecified organism (principal); J96.21 Acute and chronic respiratory failure with hypoxia; J44.1 Chronic obstructive pulmonary disease with (acute) exacerbation; Z99.81 Dependence on supplemental oxygen; N40.1 Benign prostatic hyperplasia with lower urinary tract symptoms; R35.0 Frequency of micturition; D63.8 Anemia in other chronic diseases classified elsewhere; N28.9 Disorder of kidney and ureter, unspecified; M25.50 Pain in unspecified joint; B02.9 Zoster without complications; F32.9 Major depressive disorder, single episode, unspecified; I10 Essential (primary) hypertension; K21.9 Gastro-esophageal reflux disease without esophagitis
CPT/HCPCS: 0099U; 36415; 36600; 71045; 80048; 80053; 82803; 83605; 83735; 83880; 84145; 84484; 85025; 87040; 93005; 93010; 94640; 94664; 94761; 94762; 96365; 96367; 96375; 97110; 97162; 97530; 99285-25; J0456; J0692; J1650; J2930; J3370; J7050; J7120; J7512

== ENCOUNTER 2019-09-22 08:50 | Emergency (ER) | payer MEDICARE ==
[~2019-09-22] VITALS: Ht 157.5 cm; Wt 77.1 kg
[~2019-09-22 08:50] MED LIST changes: +Azithromycin250 MG PO; +Florastor250 MG PO; +ZOLOFT25 MG PO
[2019-09-22 10:47] LABS: BASOPHILS ABSOLUTE AUTO 0.02 K/mm3 (0.00-0.23); BASOPHILS PERCENT AUTO 0 % (0-2); EOSINOPHILS ABSOLUTE AUTO 0.15 K/mm3 (0.00-0.68); EOSINOPHILS PERCENT AUTO 2 % (0-6); Hematocrit 37.6 % (37.0-53.0); Hemoglobin 11.4 g/dL (13.5-17.5); IMMATURE GRAN ABSOLUTE AUTO 0.03 K/mm3 (0.00-0.10); IMMATURE GRAN PERCENT AUTO 1 % (0-1); LYMPHOCYTES ABSOLUTE AUTO 2.59 K/mm3 (0.84-5.20); LYMPHOCYTES PERCENT AUTO 42 % (21-46); MONOCYTES ABSOLUTE AUTO 0.41 K/mm3 (0.16-1.47); MONOCYTES PERCENT AUTO 7 % (4-13); Mean Corpuscular HGB 25.2 pg (26.0-34.0); Mean Corpuscular HGB Conc 30.3 g/dL (31.5-36.5); Mean Corpuscular Volume 83 fL (80-100); Mean Platelet Volume 9.5 fL (9.1-12.4); NEUTROPHILS PERCENT AUTO 48 % (41-73); Platelet Count 174 K/mm3 (150-400); RDW Coefficient Variation 15.6 % (11.7-14.2); RDW Standard Deviation 46.9 fL (35.1-46.3); Red Blood Cell Count 4.53 M/mm3 (4.30-5.90)
[2019-09-22 10:52] LABS: Alanine Aminotransfer (ALT/SGP 12 U/L (12-78); Albumin, Blood 3.2 g/dL (3.4-5.0); Albumin/Globulin Ratio 0.6 (0.8-1.8); Alk Phos 119 U/L (50-136); Anion Gap 3 mmol/L (6-16); Aspartate Aminotrans (AST/SGOT 14 U/L (12-37); Bilirubin, Total 0.3 mg/dL (0.1-1.0); Blood Urea Nitrogen 17 mg/dL (8-24); Bun/Creatinine Ratio 19.6 (12.0-20.0); CO2, Blood 31 mmol/L (21-32); Calcium, Blood 9.1 mg/dL (8.5-10.1); Chloride, Blood 103 mmol/L (98-108); Creatinine, Blood 0.87 mg/dL (0.60-1.20); Globulin, Blood 5.3 g/dL (2.2-4.0); Glomerular Filtration Rate >60 (60-); Glucose, Blood 107 mg/dL (70-99); Potassium, Blood 3.5 mmol/L (3.5-5.5); Sodium, Blood 137 mmol/L (136-145); Total Protein, Blood 8.5 g/dL (6.4-8.2)
[2019-09-22 14:01] LABS: Source, Urine Clean Catch
[2019-09-22 14:05] LABS: Bilirubin, Urine Neg (Neg); Blood, Urine 2+ (Neg); Glucose Qualitative, Urine Neg (Neg); Ketones, Urine 1+ (Neg); Leukocyte Esterase, Urine 3+ (Neg); Nitrite, Urine Pos (Neg); Protein, Urine 3+ (Neg); Specific Gravity, Urine 1.015 (1.003-1.022); Urobilinogen, Urine NORM (Normal)
[2019-09-22 14:07] LABS: Appearance, Urine Cloudy (Clear); Color, Urine Yellow (P-Yellow)
[2019-09-22 14:10] LABS: Bacteria Many /hpf; Mucus Light (0-Heavy); Squamous Epithelial Cells Few /hpf (Few)
[2019-09-22] MEDS ORDERED: Keflex500 MG PO (14:30)
[2019-09-22] MEDS ORDERED: ONDA4ODT MM (14:30)
== END 2019-09-22 15:10 | disposition home or self-care (01) ==
LOC: ER 08:50
PROVIDERS: Emergency Medicine
DX: N39.0 Urinary tract infection, site not specified (principal); E86.0 Dehydration; I11.0 Hypertensive heart disease with heart failure; I50.9 Heart failure, unspecified; E78.5 Hyperlipidemia, unspecified; J44.9 Chronic obstructive pulmonary disease, unspecified; D64.9 Anemia, unspecified; Z79.899 Other long term (current) drug therapy; Z79.82 Long term (current) use of aspirin; Z79.51 Long term (current) use of inhaled steroids; Z86.73 Personal history of transient ischemic attack (TIA), and cerebral infarction without residual deficits; Z87.891 Personal history of nicotine dependence
CPT/HCPCS: 36415; 71046; 80053; 81001; 83690; 85025; 87077; 87086; 87186; 93005; 93010; 96361; 96365; 96375; 99284-25; J0696; J2405; J7030

== ENCOUNTER 2020-04-13 11:47 | Inpatient (IN) | payer MEDICARE, OTHER ==
[~2020-04-13] VITALS: Ht 172.7 cm; Wt 72.3 kg
[~2020-04-13 11:47] MED LIST changes: +ALBU2.5V5 INH; +AMLODIPINE-BEN1 EAC4 PO; -ASPI325 PO; +Aspirin EC81 MG PO; -BUDE10.22 INH; +Bactrim Ds Tab1 EACH PO; +FLUT.05NI; -Flonase 0.05% N16 GM; +Keflex500 MG PO; +Miralax17 GM PO; +Norco 5-325 Ta1 EACH PO; +ONDA4ODT MM; +SYMBICORT 80-10.2 GM INH; -[UNRECOGNIZED DRUG - OTHER] PO
[2020-04-13 12:29] LABS: BASOPHILS ABSOLUTE AUTO 0.06 K/mm3 (0.00-0.23); BASOPHILS PERCENT AUTO 1 % (0-2); EOSINOPHILS ABSOLUTE AUTO 0.13 K/mm3 (0.00-0.68); EOSINOPHILS PERCENT AUTO 2 % (0-6); Hematocrit 29.4 % (37.0-53.0); Hemoglobin 7.8 g/dL (13.5-17.5); IMMATURE GRAN ABSOLUTE AUTO 0.03 K/mm3 (0.00-0.10); IMMATURE GRAN PERCENT AUTO 0 % (0-1); LYMPHOCYTES ABSOLUTE AUTO 1.52 K/mm3 (0.84-5.20); LYMPHOCYTES PERCENT AUTO 19 % (21-46); MONOCYTES ABSOLUTE AUTO 0.48 K/mm3 (0.16-1.47); MONOCYTES PERCENT AUTO 6 % (4-13); Mean Corpuscular HGB 21.1 pg (26.0-34.0); Mean Corpuscular HGB Conc 26.5 g/dL (31.5-36.5); Mean Corpuscular Volume 80 fL (80-100); Mean Platelet Volume 9.8 fL (9.1-12.4); NEUTROPHILS ABSOLUTE AUTO 5.97 K/mm3 (1.96-9.15); NEUTROPHILS PERCENT AUTO 73 % (41-73); NRBC ABSOLUTE 0.02 K/mm3 (0.00-0.02); NRBC Auto 0.2 /100 WBC (0.0-0.2); Platelet Count 251 K/mm3 (150-400); RDW Coefficient Variation 15.4 % (11.7-14.2); RDW Standard Deviation 44.3 fL (35.1-46.3); White Blood Cell Count 8.19 K/mm3 (4.00-11.30)
[2020-04-13 12:43] LABS: Troponin I <0.015 ng/mL (0.000-0.040)
[2020-04-13 12:45] LABS: Alanine Aminotransfer (ALT/SGP 14 U/L (12-78); Albumin/Globulin Ratio 0.6 (0.8-1.8); Alk Phos 144 U/L (50-136); Anion Gap 3 mmol/L (6-16); Bilirubin, Total 0.5 mg/dL (0.1-1.0); Blood Urea Nitrogen 17 mg/dL (8-24); CO2, Blood 33 mmol/L (21-32); Calcium, Blood 8.5 mg/dL (8.5-10.1); Chloride, Blood 100 mmol/L (98-108); Creatinine, Blood 0.81 mg/dL (0.60-1.20); Globulin, Blood 5.3 g/dL (2.2-4.0); Glomerular Filtration Rate >60 (60-); Glucose, Blood 150 mg/dL (70-99); Potassium, Blood 4.1 mmol/L (3.5-5.5); Sodium, Blood 136 mmol/L (136-145); Total Protein, Blood 8.3 g/dL (6.4-8.2)
[2020-04-13 12:55] LABS: Aspartate Aminotrans (AST/SGOT 9 U/L (12-37)
--- NOTE | 2020-04-13 15:27 | NUR ---
ASSUMED PATIENT CARE. PATIENT TRANSFERED FROM ER VIA GURNEY, NO SIGNS OF ACUTE DISTRESS, PATIENT CONVERSING WITH NURSING STAFF. WCTM.
--- NOTE | 2020-04-13 22:31 | NUR ---
1944 PT RESTING COMFORTABLY IN BED; CHEERFUL; DAUGHTER AT SIDE AND SUPPORTIVE; ABLE TO FOLLOW ALL SIMPLE VERBAL COMMANDS.
--- NOTE | 2020-04-14 05:40 | NUR ---
SHIFT SUMMARY: 89 Y/O MALE RESTED COMFORTABLY ALL SHIFT WHILE WEARING OXYMIZER AT 7L/M; DENIES PAIN; ALERT AND ORIENTED X 4; HAPPY AND COOPERATIVE; LUNG SOUNDS ARE DIMINISHED THROUGHOUT; BED LOW POSITION WITH CALL LIGHT AT SIDE.
[2020-04-14 06:00] LABS: BASOPHILS PERCENT AUTO 0 % (0-2); EOSINOPHILS PERCENT AUTO 0 % (0-6); Hematocrit 28.6 % (37.0-53.0); Hemoglobin 7.8 g/dL (13.5-17.5); IMMATURE GRAN ABSOLUTE AUTO 0.05 K/mm3 (0.00-0.10); IMMATURE GRAN PERCENT AUTO 1 % (0-1); LYMPHOCYTES ABSOLUTE AUTO 0.71 K/mm3 (0.84-5.20); LYMPHOCYTES PERCENT AUTO 13 % (21-46); MONOCYTES ABSOLUTE AUTO 0.09 K/mm3 (0.16-1.47); MONOCYTES PERCENT AUTO 2 % (4-13); Mean Corpuscular HGB Conc 27.3 g/dL (31.5-36.5); Mean Corpuscular Volume 77 fL (80-100); Mean Platelet Volume 10.4 fL (9.1-12.4); NEUTROPHILS ABSOLUTE AUTO 4.72 K/mm3 (1.96-9.15); NEUTROPHILS PERCENT AUTO 85 % (41-73); NRBC ABSOLUTE 0.02 K/mm3 (0.00-0.02); NRBC Auto 0.4 /100 WBC (0.0-0.2); Platelet Count 267 K/mm3 (150-400); RDW Coefficient Variation 15.3 % (11.7-14.2); RDW Standard Deviation 42.5 fL (35.1-46.3); Red Blood Cell Count 3.71 M/mm3 (4.30-5.90); White Blood Cell Count 5.57 K/mm3 (4.00-11.30)
[2020-04-14 06:22] LABS: Anion Gap 2 mmol/L (6-16); Blood Urea Nitrogen 24 mg/dL (8-24); Bun/Creatinine Ratio 24.5 (12.0-20.0); CO2, Blood 36 mmol/L (21-32); Calcium, Blood 8.6 mg/dL (8.5-10.1); Chloride, Blood 98 mmol/L (98-108); Creatinine, Blood 0.98 mg/dL (0.60-1.20); Glomerular Filtration Rate >60 (60-); Glucose, Blood 124 mg/dL (70-99); Potassium, Blood 4.1 mmol/L (3.5-5.5); Sodium, Blood 136 mmol/L (136-145)
--- NOTE | 2020-04-14 07:48 | NUR ---
PATIENT C/O UPSET STOMACH AND NAUSEA TO TESTER ROCKET ENGINE. PATIENT C/O LEFT SIDED CHEST PAIN TO THIS RN. PRESENTED FOR ROUNDS. REQUESTS EKG AND TROPONIN NOW. LAB NOTIFIED, VITALS OBTAINED AND WNL. PATIENT IS NOT IN DISTRESS AT THIS TIME. WILL CONT TO MONITOR.
--- NOTE | 2020-04-14 18:41 | NUR ---
SHIFT SUMMARY NO ACUTE CHANGES THIS SHIFT. PATIENT IS ALERT AND ORIENTED X2, ABLE TO MAKE HIS NEEDS KNOWN. HE IS MEDICAL STAUS PENDING TRANSFER TO THE FLOOR. PATIENT IS TO BE UP TO THE CHAIR FOR MEALS. PER PT AYUSH HE IS AT HIS BASELINE. HE LIVES AT [facility] AND WILL RETURN THERE AT DISCHARGE. CURRENTLY HE IS ON 4-5L VIA NC, 4 IS HIS BASELINE. BED LOW AND LOCKED, CALL LIGHT WITHIN REACH. WILL CONT TO MONITOR AND REPORT OFF TO ROTARY SHEAR WORKER HELPER.
--- NOTE | 2020-04-15 06:35 | NUR ---
04/15/20 0630 PT AWAKENED FOR AM MED. IRRITABLE AND ANGRY WITH RN BECAUSE "I WAS SLEEPING GODD." O2 REMAINS AT 3LPM VIA N/C. PT MEDICATED EARLIER FOR GENERAL CHEST DISCOMFORT WITH TYLENOL AND STATED THE TYLENOL REMOVED ALL THE PAIN AND HE SLEPT WELL AFTERWARDS. INCONTINENT OF URINE AND HE WILL CALL STAFF WHEN HE NEEDS TO BE CHANGED. ALSO HE DID C/O SOB ABOUT 0425 AND RN NOTED HIS O2 HAD COME OFF HIS NOSE. O2 SATS WERE 87%. O2 WAS REAPPLIED TO NOSE.
[2020-04-15 10:11] LABS: BASOPHILS ABSOLUTE AUTO 0.01 K/mm3 (0.00-0.23); BASOPHILS PERCENT AUTO 0 % (0-2); EOSINOPHILS PERCENT AUTO 0 % (0-6); Hematocrit 27.8 % (37.0-53.0); Hemoglobin 7.6 g/dL (13.5-17.5); IMMATURE GRAN ABSOLUTE AUTO 0.04 K/mm3 (0.00-0.10); IMMATURE GRAN PERCENT AUTO 0 % (0-1); LYMPHOCYTES ABSOLUTE AUTO 0.82 K/mm3 (0.84-5.20); LYMPHOCYTES PERCENT AUTO 8 % (21-46); MONOCYTES PERCENT AUTO 4 % (4-13); Mean Corpuscular HGB 21.3 pg (26.0-34.0); Mean Corpuscular HGB Conc 27.3 g/dL (31.5-36.5); Mean Corpuscular Volume 78 fL (80-100); Mean Platelet Volume 10.2 fL (9.1-12.4); NEUTROPHILS ABSOLUTE AUTO 9.07 K/mm3 (1.96-9.15); NEUTROPHILS PERCENT AUTO 88 % (41-73); Platelet Count 288 K/mm3 (150-400); RDW Coefficient Variation 15.8 % (11.7-14.2); RDW Standard Deviation 44.1 fL (35.1-46.3); Red Blood Cell Count 3.57 M/mm3 (4.30-5.90); White Blood Cell Count 10.34 K/mm3 (4.00-11.30)
[2020-04-15 10:28] LABS: Alanine Aminotransfer (ALT/SGP 10 U/L (12-78); Albumin, Blood 3.1 g/dL (3.4-5.0); Albumin/Globulin Ratio 0.6 (0.8-1.8); Alk Phos 114 U/L (50-136); Anion Gap 4 mmol/L (6-16); Aspartate Aminotrans (AST/SGOT 8 U/L (12-37); Bilirubin, Total 0.3 mg/dL (0.1-1.0); Blood Urea Nitrogen 30 mg/dL (8-24); Bun/Creatinine Ratio 30.1 (12.0-20.0); CO2, Blood 36 mmol/L (21-32); Calcium, Blood 8.5 mg/dL (8.5-10.1); Chloride, Blood 98 mmol/L (98-108); Globulin, Blood 4.9 g/dL (2.2-4.0); Glomerular Filtration Rate >60 (60-); Glucose, Blood 195 mg/dL (70-99); Potassium, Blood 3.6 mmol/L (3.5-5.5); Sodium, Blood 138 mmol/L (136-145)
--- NOTE | 2020-04-15 16:19 | NUR ---
SHIFT SUMMARY PT IS A/O X 4 AND HAS NO C/O PAIN. HE HAS BEEN WORKING WITH RT ALL DAY. HE IS PLEASANT AND COOPERATIVE WITH HIS CARE. HE HAS BEEN INC AND NEEDS TOTAL ASSIST FOR TOILETING. PER DR MARTIN HE IS GETTING CLOSE TO HIS BASELINE AND CAN PLAN TO GO HOME IN THE NEXT DAY OR 2. HE HAS BEEN UP TO THE CHAIR FOR BREAKFAST AND SITTING ON THE SIDE OF THE BED FOR LUNCH. DAUGHTER HAS BEEN BY TO VISIT HIM THROUGHOUT THE DAY. HE IS RESTING IN BED. HE IS ABLE TO MAKE HIS NEEDS KNOWN AND CALLS FOR HELP WHEN NEEDED.
--- NOTE | 2020-04-15 17:55 | NUR ---
Initial spiritual care note: Mr. Martinez is well-known to me from previous hospitalizations. We have an easy rapport. This morning he appeared rather tired and weak. He smiled easily and chatted happily with me for a while. He denied conerns and told me he feels "better than I did." Adult dtrs are very attentive. Prayer provided for healing at Bravo's request. I will continue to see Bravo as case-load permits.
[2020-04-16] MEDS ORDERED: AZIT500 PO (13:48)
[2020-04-16] MEDS ORDERED: IPRAT-ALBUT 0.5-3 ML INH (13:49)
[2020-04-16] MEDS ORDERED: Deltasone 10 mg10 MG PO (13:50)
[2020-04-16] MEDS ORDERED: FURO20 PO (13:52)
--- NOTE | 2020-04-16 14:04 | NUR ---
PT HAS ORDERS TO DC HOME BACK TO [facility]. MED REC WAS FAXED TO [facility] PER THE FAMILY REQUEST. FAMILY HAD ALREADY SCHEDULED F/U APPT WITH DR MARTIN. ALL INSTRUCTIONS REVIEWED WITH THE PT AND THE FAMILY AND ALL QUESTIONS ANSWERED. IV REMOVED WITH NO ISSUE. PT IS AWAITING TRANSPORT.
--- NOTE | 2020-04-16 18:20 | NUR ---
Spiritual care note: Provided supportive visit and prayer to Bravo. He is happy to be returning home and is, as always, grateful for prayer.
== END 2020-04-16 14:47 | disposition home or self-care (01) | DRG 189 ==
LOC: ER 11:47 → ERHOLD 11:48 → ER 11:48 → PCU 14:56 → ERHOLD 14:56 → PCU 15:56 → ERHOLD 04-14 10:50 → PCU 04-14 10:50 → MEDS 04-14 23:05 → PCU 04-14 23:05 → MEDS 04-16 14:47
PROVIDERS: Emergency Medicine; Family Medicine; ADMIT Internal Medicine
DX: J96.21 Acute and chronic respiratory failure with hypoxia (principal); J44.1 Chronic obstructive pulmonary disease with (acute) exacerbation; N40.0 Benign prostatic hyperplasia without lower urinary tract symptoms; Z20.828 Contact with and (suspected) exposure to other viral communicable diseases; F32.9 Major depressive disorder, single episode, unspecified; I11.0 Hypertensive heart disease with heart failure; I50.9 Heart failure, unspecified; K21.9 Gastro-esophageal reflux disease without esophagitis; D64.9 Anemia, unspecified; Z99.81 Dependence on supplemental oxygen; Z86.73 Personal history of transient ischemic attack (TIA), and cerebral infarction without residual deficits; Z87.891 Personal history of nicotine dependence; Z79.82 Long term (current) use of aspirin; Z79.51 Long term (current) use of inhaled steroids
CPT/HCPCS: 36415; 71045; 80048; 80053; 83880; 84484; 85025; 93005; 93010; 93306; 94640; 94664; 94667; 94760; 96374; 96375; 97161; 98960; 99285-25; A9270; G0378; J0456; J0696; J1650; J1940; J2920; J2930; J7050; J7512; U0002

== ENCOUNTER 2020-12-16 13:00 | Observation (INO) | payer MEDICARE ==
[~2020-12-16] VITALS: Ht 167.6 cm; Wt 73.1 kg
[~2020-12-16 13:00] MED LIST changes: -AMLODIPINE-BEN1 EAC4 PO; +AZIT500 PO; -Aspirin EC81 MG PO; +Deltasone 10 mg10 MG PO; -PROP80ER PO; -SYMBICORT 80-10.2 GM INH; -ZOLOFT25 MG PO
[2020-12-16 13:41] LABS: BASOPHILS ABSOLUTE AUTO 0.05 K/mm3 (0.00-0.23); BASOPHILS PERCENT AUTO 0 % (0-2); EOSINOPHILS PERCENT AUTO 1 % (0-6); Hematocrit 30.4 % (37.0-53.0); Hemoglobin 8.8 g/dL (13.5-17.5); IMMATURE GRAN ABSOLUTE AUTO 0.08 K/mm3 (0.00-0.10); IMMATURE GRAN PERCENT AUTO 1 % (0-1); LYMPHOCYTES ABSOLUTE AUTO 1.49 K/mm3 (0.84-5.20); LYMPHOCYTES PERCENT AUTO 10 % (21-46); MONOCYTES PERCENT AUTO 6 % (4-13); Mean Corpuscular HGB 25.8 pg (26.0-34.0); Mean Corpuscular HGB Conc 28.9 g/dL (31.5-36.5); Mean Corpuscular Volume 89 fL (80-100); Mean Platelet Volume 9.4 fL (9.1-12.4); NEUTROPHILS ABSOLUTE AUTO 11.92 K/mm3 (1.96-9.15); NEUTROPHILS PERCENT AUTO 83 % (41-73); Platelet Count 267 K/mm3 (150-400); RDW Standard Deviation 55.2 fL (35.1-46.3); Red Blood Cell Count 3.41 M/mm3 (4.30-5.90); White Blood Cell Count 14.44 K/mm3 (4.00-11.30)
[2020-12-16 14:00] LABS: Albumin, Blood 3.2 g/dL (3.4-5.0); Albumin/Globulin Ratio 0.6 (0.8-1.8); Bilirubin, Total 0.5 mg/dL (0.1-1.0); Bun/Creatinine Ratio 21.2 (12.0-20.0); Calcium, Blood 9.2 mg/dL (8.5-10.1); Creatinine, Blood 1.32 mg/dL (0.60-1.20); Globulin, Blood 5.4 g/dL (2.2-4.0); Potassium, Blood 5.2 mmol/L (3.5-5.5); Total Protein, Blood 8.6 g/dL (6.4-8.2)
[2020-12-16 14:28] LABS: Source, Urine Voided
[2020-12-16 14:37] LABS: Appearance, Urine Hazy (Clear); Blood, Urine 4+ (Neg); Color, Urine Amber (P-Yellow); Glucose Qualitative, Urine Neg (Neg); Ketones, Urine 1+ (Neg); Leukocyte Esterase, Urine 2+ (Neg); Nitrite, Urine Neg (Neg); Protein, Urine 3+ (Neg); Specific Gravity, Urine 1.015 (1.003-1.022); Urobilinogen, Urine 2+ (Normal)
[2020-12-16 14:48] LABS: Bilirubin, Urine 1+ (Neg)
[2020-12-16 14:52] LABS: Amorphous Mod (0-Heavy); Bacteria Mod /hpf; Squamous Epithelial Cells Few /hpf (Few)
[2020-12-16] MEDS ORDERED: AMLODIPINE-BEN1 EAC4 PO (16:11)
[2020-12-16] MEDS ORDERED: SYMBICORT 160-4.6 GM INH (16:11)
[2020-12-16] MEDS ORDERED: TAMS.4ER PO (16:12)
[2020-12-16] MEDS ORDERED: Omeprazole20 M1 PO (16:12)
[2020-12-16] MEDS ORDERED: ZOLOFT25 MG PO (16:12)
[2020-12-16] MEDS ORDERED: K-Dur20 MEQ PO (16:13)
[2020-12-16] MEDS ORDERED: FURO20 PO (16:13)
[2020-12-16] MEDS ORDERED: FINA5 PO (16:14)
[2020-12-16] MEDS ORDERED: Aspirin EC81 MG PO (16:14)
[2020-12-16] MEDS ORDERED: PROP80ER PO (16:15)
[2020-12-16] MEDS ORDERED: IPRAT-ALBUT 0.5-3 ML NEB (17:21)
--- NOTE | 2020-12-16 19:31 | NUR ---
transfer report from [facility] PAYROLL ASSOCIATE on 89 year old MAle with acute colitis who presented to ER with diarrhea & has reportedly had several more fecal incont. Will be DR Payne & on tele & oxygen. Await admission contact enteric precautions GI panel will lbe sent. Able to communicate DTR Delmy was in ER.
--- NOTE | 2020-12-17 06:31 | NUR ---
Elderly MAle who lives at [facility] admitted with acute colitis & he has several fecal incont but unable to collect stool sample for GI panel. Incontinent of large amts of urine. PT on oxygen 2 l baseline 28/02. Recent URI completed zpac prior to colitis. In enteric contact isolation for diarrhea.
[2020-12-17 07:24] LABS: Calcium, Blood 8.2 mg/dL (8.5-10.1); Creatinine, Blood 1.5 mg/dL (0.60-1.20); Potassium, Blood 4.3 mmol/L (3.5-5.5)
--- NOTE | 2020-12-17 16:21 | NUR ---
PT IS ALERT AND ORIENTED AND ABLE TO EXPRESS ANY NEEDS. PT ABLE TO PRODUCE STOOL SAMPLE REQUESTED. ABX RUNNING , PT TOLERATING WELL.LUNG SOUND CLEAR,DIMINISHED AT BASES. DAUGHTER AT BEDSIDE. CALL LIGHT WITHIN REACH.
--- NOTE | 2020-12-17 17:57 | NUR ---
Mr. Martinez and I have an easy rapport. He is always quite charming and enjoys conversation/encouragement. He held my and tightly and asked for prayer. He states that his life is "nothing like it was." He admits that he sometimes wonders how much longer he will be around. His 89th birthday is in 4 months, and he is looking forward to this. Bravo appears frail and weak. Family at bedside and clearly devoted. I emphasized the deep love from his family and his contribution to the world. [employer] Machine Operator services will remain available.
[2020-12-17 19:02] LABS: Adenovirus F 40/41 Not Detected (NOT DETECT); Astrovirus Not Detected (NOT DETECT); Campylobacter Sp Not Detected (NOT DETECT); Cryptosporidium Not Detected (NOT DETECT); Cyclospora Cayetanensis Not Detected (NOT DETECT); E. Coli O157 Not Detected (NOT DETECT); Entamoeba Histolytica Not Detected (NOT DETECT); Enteroaggregative E. coli-EAEC Not Detected (NOT DETECT); Enteropathogenic E. coli-EPEC Not Detected (NOT DETECT); Enterotoxigenic E. coli-ETEC Not Detected (NOT DETECT); Giardia Lamblia Not Detected (NOT DETECT); Norovirus GI/GII Not Detected (NOT DETECT); Plesiomonas Shigelloides Not Detected (NOT DETECT); Rotavirus A Not Detected (NOT DETECT); Salmonella Sp Not Detected (NOT DETECT); Sapovirus Not Detected (NOT DETECT); Shiga Toxin-prod E. coli-STEC Not Detected (NOT DETECT); Shigella/Enteroin E. coli-EIEC Not Detected (NOT DETECT); Vibrio Cholerae Not Detected (NOT DETECT); Vibrio Sp Not Detected (NOT DETECT); Yersinia Enterocolitica Not Detected (NOT DETECT)
--- NOTE | 2020-12-18 01:21 | NUR ---
IV saline lock present rt hand not doc. rt ac iv dc was doc. IV infused flagyl
[2020-12-18 06:41] LABS: Albumin, Blood 2.4 g/dL (3.4-5.0); Albumin/Globulin Ratio 0.6 (0.8-1.8); Bilirubin, Total 0.3 mg/dL (0.1-1.0); Bun/Creatinine Ratio 16.4 (12.0-20.0); Calcium, Blood 8.2 mg/dL (8.5-10.1); Creatinine, Blood 1.34 mg/dL (0.60-1.20); Globulin, Blood 3.9 g/dL (2.2-4.0); Potassium, Blood 4.1 mmol/L (3.5-5.5)
[2020-12-18 06:42] LABS: Total Protein, Blood 6.3 g/dL (6.4-8.2)
[2020-12-18] MEDS ORDERED: LEVFLO500 PO (11:05)
[2020-12-18] MEDS ORDERED: METR500 PO (11:05)
--- NOTE | 2020-12-18 11:26 | NUR ---
DISCHARGE ORDERS COMPLETED. THIS RN EXPLAINED THE DISCHARGE ORDERS TO THE PATIENT AND HIS DAUGHTER OVER THE PHONE. MEDICATIONS FAXED TO [facility]. THE PATIENT'S IV HAS BEEN REMOVED. THE PATIENT IS DRESSED IN HIS CLOTHES AND WAITING TO BE DISCHARGED
== END 2020-12-18 11:34 | disposition home or self-care (01) ==
LOC: ER 13:00 → MEDS 13:01 → ER 17:00 → MEDS 19:45
PROVIDERS: Emergency Medicine; Family Medicine; ADMIT Internal Medicine
DX: K52.9 Noninfective gastroenteritis and colitis, unspecified (principal); I95.89 Other hypotension; R00.1 Bradycardia, unspecified; E86.9 Volume depletion, unspecified; J43.9 Emphysema, unspecified; F32.9 Major depressive disorder, single episode, unspecified; I11.0 Hypertensive heart disease with heart failure; I50.9 Heart failure, unspecified; D63.8 Anemia in other chronic diseases classified elsewhere; N40.0 Benign prostatic hyperplasia without lower urinary tract symptoms; N17.9 Acute kidney failure, unspecified; K21.9 Gastro-esophageal reflux disease without esophagitis; Z66 Do not resuscitate; Z86.73 Personal history of transient ischemic attack (TIA), and cerebral infarction without residual deficits; Z87.891 Personal history of nicotine dependence; Z90.49 Acquired absence of other specified parts of digestive tract; Z88.5 Allergy status to narcotic agent; Z99.81 Dependence on supplemental oxygen; Z90.79 Acquired absence of other genital organ(s)
CPT/HCPCS: 0097U; 36415; 51701; 74177; 80048; 80053; 81001; 82947; 83690; 85025; 87086; 93005; 93010; 94640; 94760; 96365-59; 96366; 96366-59; 96367; 96367-59; 96372; 96375-59; 96376; 99285-25; A9270; G0378; J0295; J1644; J1956; J2270; J2405; J3010; J7030; Q9967

== ENCOUNTER → 2020-12-31 | Outpatient (CLI) | payer MEDICARE ==
[~2020-12-31] MED LIST changes: +AMLODIPINE-BEN1 EAC4 PO; +Aspirin EC81 MG PO; +FURO20 PO; +IPRAT-ALBUT 0.5-3 ML NEB; +K-Dur20 MEQ PO; +METR500 PO; +PROP80ER PO; +SYMBICORT 160-4.6 GM INH; +ZOLOFT25 MG PO
[2020-12-31 19:05] LABS: Campylobacter Sp Not Detected (NOT DETECT)
[2020-12-31 19:06] LABS: Adenovirus F 40/41 Not Detected (NOT DETECT); Astrovirus Not Detected (NOT DETECT); Cryptosporidium Not Detected (NOT DETECT); Cyclospora Cayetanensis Not Detected (NOT DETECT); E. Coli O157 Not Detected (NOT DETECT); Entamoeba Histolytica Not Detected (NOT DETECT); Enteroaggregative E. coli-EAEC Not Detected (NOT DETECT); Enteropathogenic E. coli-EPEC Not Detected (NOT DETECT); Enterotoxigenic E. coli-ETEC Not Detected (NOT DETECT); Giardia Lamblia Not Detected (NOT DETECT); Norovirus GI/GII Not Detected (NOT DETECT); Plesiomonas Shigelloides Not Detected (NOT DETECT); Rotavirus A Not Detected (NOT DETECT); Salmonella Sp Not Detected (NOT DETECT); Sapovirus Not Detected (NOT DETECT); Shiga Toxin-prod E. coli-STEC Not Detected (NOT DETECT); Shigella/Enteroin E. coli-EIEC Not Detected (NOT DETECT); Vibrio Cholerae Not Detected (NOT DETECT); Vibrio Sp Not Detected (NOT DETECT); Yersinia Enterocolitica Not Detected (NOT DETECT)
== END | disposition home or self-care (01) ==
LOC: LAB SHORT 14:55 → LAB 14:55
PROVIDERS: Family Medicine
DX: R19.7 Diarrhea, unspecified (principal)
CPT/HCPCS: 0097U; 87324